=== PATIENT | male | born 1975 | race Caucasian/White ===

== ENCOUNTER 2017-12-24 11:10 | Emergency (ER) | payer MEDICAID, SELFPAY ==
[2017-12-24 11:15] VITALS: BP 120/79; PULSE 95; RESP 12; TEMP 36.8; O2SAT 93
--- NOTE | 2017-12-24 11:52 | ED.GENADUL ---
Disposition Clinical Impression: Laceration of hand Disposition: HOME Condition: Stable Instructions: Care For Your Stitches (ED), Laceration (ED) Additional Instructions: Return immediately for any signs of infection which includes purulent drainage, erythema, significant change in pain or discomfort, or any further concerns. Otherwise keep wound clean and dry and return to the emergency department in 7-10 days for suture removal. Referrals: [facility] Emergency [facility]. [Outside] (Return immediately for any signs of infection otherwise return in 7-10 days for suture removal.) Medical Decision Making - Medical Decision Making Patient presenting to the emergency department for right hand laceration. Patient is predominantly right-handed. Physical exam shows a 3 cm laceration between the thumb and index finger in the webspace. Visualization of wound down to the base in bloodless field shows no deep tissue damage, no obvious tendon or significant vascular injury, no foreign body and no significant contamination. See procedure note for wound closure. Patient was encouraged to watch for any signs of infection and return immediately if these occur otherwise to return in 7-10 days for suture removal. History of Present Illness - General Chief complaint: Laceration Stated complaint: RT HAND LACERATION Time Seen by Provider: 12/24/17 11:11 Source: patient, RN notes reviewed Mode of arrival: ambulatory Limitations: no limitations - History of Present Illness Initial comments: Patient reports approximately an hour prior to arrival he was attempting to install a windshield in a old pickup truck and placed the rubberized seal around the glass. When he was attempting to put on the seal his hand slipped causing a laceration to his right webspace in between the thumb and the index finger. Patient states full movement and sensation of the extremity with moderate amount of bleeding. Patient denies any other injury or trauma. Patient is predominantly right-handed. Onset/Timin -: hour(s) Severity scale (1-10): 3 Quality: aching Consistency: constant Improves with: none Worsens with: none Associated Symptoms: denies other symptoms Treatments Prior to Arrival: none - Related Data Flexaril 09/05/17 Gabapentin 100 mg PO DAILY PRN 09/05/17 SUMAtriptan [Imitrex] 50 mg PO DAILY 09/05/17 CarBAMazepine [TEGretol] 200 mg PO TID 12/24/17 Allergies Allergy/AdvReac Type Severity Reaction Status Date / Time No Known Allergies Allergy Unverified 12/24/17 11:21 Review of Systems Constitutional: no symptoms reported Cardiovascular: denies: syncope Skin: as per HPI Past Medical History - Past Medical History Medical history: seizures Chronic back pain/shoulder pain Surgical history: non-contributory Psychiatric history: other Family history: CAD/[place], diabetes - Social History Smoking status: current everyday smoker Alcohol use: none Drug use: none Living Situation: lives with family General Exam - General Limitations: no limitations General appearance: alert, in no apparent distress - Head Head exam: Present: atraumatic - Respiratory Respiratory exam: Absent: respiratory distress - Cardiovascular Cardiovascular Exam: Present: regular rate, normal rhythm - Expanded Upper Extremity Exam Right Elbow exam: Present: normal inspection Forearm Wrist exam: Present: normal inspection Hand Wrist exam: Present: full ROM, laceration (3 cm laceration in between thumb and index finger). Absent: tenderness, swelling Neuro motor exam: Present: wrist extension intact, thumb opposition intact, thumb IP flexion intact, thumb adduction intact, fingers 2-5 abduction intact Neurosensory exam: Present: 2-point discrimination, radial nerve intact, ulnar nerve intact, median nerve intact Vascular: Present: normal capillary refill, radial pulse (2+). Absent: vascular compromise - Neurological Exam Neurological exam: Present: alert, oriented X3. Absent: altered - Skin Skin exam: Present: warm, dry, normal color Course Vital Signs - 24 hr 12/24/17 11:15 Temperature 36.8 C Pulse 95 H Respiratory 12 Rate Blood Pressure 120/79 Pulse Oximetry 93 L Procedures - Laceration Repair Consent Obtained: Verbal consent Copious Irrigation performed: Yes Laceration Length (cm): 3 Laceration Depth: Subcutaneous Bleeding Type/Amount: Moderate, Bleeding Controlled Complexity: Simple Anesthetic: Local, Lidocaine 2% Material: Proline Suture Size: 4-0 Suture Number: 4
[2017-12-24 12:08] VITALS: BP 120/79; PULSE 95; RESP 12; TEMP 36.8; O2SAT 93
== END 2017-12-24 12:09 | disposition home or self-care (01) ==
PROVIDERS: Emergency Provider Emergency Medicine; PCP Family Medicine
DX: S61.411A Laceration without foreign body of right hand, initial encounter (principal); W25.XXXA Contact with sharp glass, initial encounter
CPT/HCPCS: 12002

== ENCOUNTER → 2017-12-28 13:50 | Outpatient (REF) | payer MEDICAID, SELFPAY ==
[2017-12-28 20:29] LABS: Bacteria Few HPF (Negative); C & S Indicated? Yes; Casts Negative LPF (Negative); Crystals Negative HPF (Negative); Epithelial Cells Rare HPF (Negative); Mucus Negative (Negative); Other Cells Rare Transitional (Negative); RBC 0-2 (0-2)
[2017-12-28 20:38] LABS: Abs Immature Grans 0.03 k/cumm (0.0-0.09); Absolute Basophil Count 0.03 k/cumm (0.0-0.2); Absolute Eosinophil Count 0.42 k/cumm (0.0-0.7); Absolute Lymphocyte Count 1.96 k/cumm (1.2-3.4); Absolute Monocyte Count 0.53 k/cumm (0.11-0.7); Absolute Neutrophil Count 7.07 k/cumm (1.2-6.7); Basophils % 0.3; Eosinophils % 4.2; HCT 46.1 % (40.0-50.0); HGB 15.4 g/dL (13.5-17.5); Immature Grans % 0.3; Lymphocytes % 19.5; Mean Corp. HGB Concentration 33.4 g/dL (32.0-36.0); Mean Corpuscular Hemoglobin 30.3 pg (27.0-33.0); Mean Corpuscular Volume 90.7 fL (80-95); Mean Platelet Volume 11.9 fL (8.0-11.0); Monocytes % 5.3; Neutrophils % 70.4; Platelet Count 220 x1000/uL (130-400); RBC 5.08 m/cumm (4.50-6.00); RBC Distribution Width 13.3 % (11.8-14.1); White Blood Cell Count 10.04 k/cumm (4.4-10.8)
== END ==
LOC: NCHCN 13:50
PROVIDERS: PCP Family Medicine; Visit Provider Physician Assistant Medical
DX: R30.0 Dysuria (principal); Z51.81 Encounter for therapeutic drug level monitoring
CPT/HCPCS: 87077; 81015; 85025; 87086; 87186

== ENCOUNTER 2017-12-31 16:14 | Emergency (ER) | payer MEDICAID, SELFPAY ==
[2017-12-31 16:34] VITALS: BP 101/69; PULSE 78; RESP 15; TEMP 36.9; O2SAT 94
--- NOTE | 2017-12-31 17:03 | ED.GENADUL ---
Disposition Clinical Impression: Wound dehiscence Disposition: HOME Condition: Good Additional Instructions: Please change Band-Aid every 1-2 days time. I anticipate your wound will heal over the next 7-10 days time. Avoid contaminated/dirty morales, or swimming in ponds and streams until healed. Return if you develop a fever, foul-smelling discharge from the wound or any other concerns Medical Decision Making - Medical Decision Making 42-year-old male with dehiscence of small wound at the right hand that he disrupted this morning when falling on it. Discussed with him we will let the area heal by secondary intention. Dressing placed at the bedside and patient stable for discharge to home. History of Present Illness - General Chief complaint: Laceration Stated complaint: R HAND/SUTURE REPAIR NEEDED? Time Seen by Provider: 12/31/17 16:52 Source: patient, RN notes reviewed Mode of arrival: ambulatory Limitations: no limitations - History of Present Illness Initial comments: Hand wound: 42-year-old male was seen on December 24 for laceration to the right hand. Sutures were placed and he removed them at home this morning. He separately fell on outstretched hand and disrupted the wound edge. No bleeding. No numbness or tingling. He did not hurt his thumb or hand - Related Data Flexaril 09/05/17 Gabapentin 100 mg PO DAILY PRN 09/05/17 SUMAtriptan [Imitrex] 50 mg PO DAILY 09/05/17 CarBAMazepine [TEGretol] 200 mg PO TID 12/24/17 Allergies Allergy/AdvReac Type Severity Reaction Status Date / Time No Known Allergies Allergy Unverified 12/31/17 16:39 Review of Systems Other: 4 systems reviewed, otherwise negative Past Medical History - Past Medical History Medical history: seizures Chronic back pain/shoulder pain Surgical history: non-contributory Family history: CAD/[place], diabetes - Social History Alcohol use: none Drug use: none General Exam - General Limitations: no limitations General appearance: alert, in no apparent distress - Head Head exam: Present: atraumatic, normocephalic - Eye Eye exam: Present: PERRL, EOMI - Extremities Exam Extremities exam: Present: full ROM, normal capillary refill, other (Right hand webbing between index finger and thumb shows 1 cm dehiscence of wound edge. No bleeding, no discharge. No foreign body seen.) - Psychiatric Psychiatric exam: Present: normal affect, normal mood - Skin Skin exam: Present: warm, dry, intact Course Vital Signs - 24 hr 12/31/17 16:34 Temperature 36.9 C Pulse 78 Respiratory 15 Rate Blood Pressure 101/69 Pulse Oximetry 94 L
== END 2017-12-31 17:08 | disposition home or self-care (01) ==
PROVIDERS: Emergency Provider Emergency Medicine; PCP Family Medicine
DX: T81.30XA Disruption of wound, unspecified, initial encounter (principal); W01.0XXA Fall on same level from slipping, tripping and stumbling without subsequent striking against object, initial encounter
CPT/HCPCS: 99282

== ENCOUNTER 2018-01-15 11:09 | Emergency (ER) | payer MEDICAID, SELFPAY ==
[2018-01-15 11:36] VITALS: BP 123/90; PULSE 79; RESP 16; TEMP 37; O2SAT 95
--- NOTE | 2018-01-15 12:02 | W.ED.GENAD ---
Discharge Plan Disposition Patient Disposition: HOME Condition: Good Discharge Details Chief Complaint: Laceration Clinical Impression: Finger laceration Primary Care Provider: Suzy Anderson V ED Provider: Ramona Dangelo Home Meds and New Rx's Prescriptions: Continue sumatriptan succinate [Imitrex] 50 MG tablet 50 mg PO DAILY RF: 0 gabapentin 100 MG capsule 100 mg PO DAILY PRNRF: 0 flexaril RF: 0 carbamazepine [Tegretol] 200 MG tablet 200 mg PO TID RF: 0 Discharge Instructions Instructions: Finger Laceration (ED) Additional Instructions: Keep wound clean, dry, covered. Keep current dressing for the next 24 hours. After that time, he may cover with a Band-Aid. Please wear gloves when you are at work. He may wash and running water but do not soak or submerge this will increase her risk of infection. Please monitor for signs of infection including redness, warmth, drainage, fever/chills, increased pain. If these arise or he develop other new/worsening symptoms please seek care urgently once again. Please return in 1 week for suture removal Referrals: Suzy Anderson MD [Primary Care Provider] - Discharge Data Discharge Date/Time-TO BE ENTERED AT DEPARTURE: 01/15/18 12:12 Medical Decision Making MDM Narrative Medical decision making narrative: Patient presents today with chief complaint of laceration to the left index finger. Patient has a 1 cm linear laceration over the radial side of the DIP joint of the left index finger. Sensation is intact. Patient's last tetanus was in 2017. Wound is not actively bleeding. Wound edges lie approximated. His wound edges do not move when the patient flexes digit I advised on adhesives for less invasive method. However, the patient declines this. He reports that he has had wound glued in the past without success. Patient is requesting suture closure. Patient has discussed risk/benefits as well as expected procedural steps. He voiced understanding and wished to proceed. 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 A digital block was then performed 1% lidocaine plain. 5 cc was infiltrated. This sufficiently anesthetized the digit. Wound was then copiously irrigated with sterile saline and cleansed with chlorhexidine. The wound was explored to base in bloodless field. Finger tourniquet was used to help with this. No foreign body or debris was noted. Note is into the subcutaneous tissue, does not extend past this to involve tendon or bone. Attention was then turned to closure. #3 simple interrupted sutures were placed with 5-0 nylon. Patient tolerated procedure well and a dry sterile bandage was put into place Patient I discussed wound care in depth. We discussed the signs symptoms of infection when to seek care urgently once again. Advised to return in 7 days for suture removal. Advised he may use Tylenol and/or ibuprofen as needed for discomfort. Advised to keep this covered while at work with gloves. He will keep covered with a Band-Aid the remainder of the time. Advised that he may wash and running water but should not soak or submerge this will increase his risk of infection. All his questions and concerns were addressed and he is in agreement with this plan. HPI - General Adult General Mode of arrival: ambulatory. Date/Time Provider Initiated Documentation: 01/15/18 11:16. Limitations to Documentation: no limitations. Information obtained by: patient. HPI Narrative: Patient is a 42-year-old [id number] male presenting today with chief complaint of laceration to the index finger of the left hand along the radial aspect over the DIP joint. He reports a prior to arrival he was cutting zip ties with an X-[employer] knife when he cut his finger. He denies any altered sensation. Reports I have chronic numbness in my fingers because of all of my trauma. Denies any acute change in this. Denies other injury to of the incident. Believes that he cut down to the bone Related Data Home Medications Medication Instructions Recorded Confirmed Flexaril 09/05/17 gabapentin 100 mg PO DAILY PRN 09/05/17 01/15/18 sumatriptan succinate [Imitrex] 50 mg PO DAILY 09/05/17 01/15/18 carbamazepine [Tegretol] 200 mg PO TID 12/24/17 01/15/18 Allergies Allergy/AdvReac Type Severity Reaction Status Date / Time No Known Allergies Allergy Unverified 01/15/18 11:38 General Stated Complaint: Laceration LILLY: 4 Review of Systems Constitutional Denies chills and Denies fever(s) Respiratory Denies cough Musculoskeletal Reports as per HPI (Denies any difficulty moving the finger) Integumentary/Breasts Reports as per HPI Neurologic Reports as per [facility] Social History Smoking/Tobacco Use Status: Current every day Exam Const General: cooperative, healthy appearing, comfortable and no acute distress Nutritional Appearance: average body habitus Orientation: alert Resp Effort & Inspection: normal respiratory effort, able to speak in complete sentences and no respiratory distress Skin Trauma: laceration (Patient has a 1 cm laceration to the subcutaneous tissue on the radial aspect near the DIP joint of the left index finger. Wound edges do not separate with flexion of the DIP. He is full range of motion. Sensation is intact. Ligament is intact) Neuro General: alert and awake Cognition: normal cognition Speech: speech normal Gait: normal gait Sensory Exam: no sensory deficits noted Extrem General: abnormal to inspection (Laceration as above), full ROM and normal capillary refill Psych Appearance: grossly normal Mental Status: mental status grossly normal Speech and Movement: speech and movement normal Course Vital Signs Temperature 37 C 01/15/18 11:36 Pulse 79 01/15/18 11:36 Respiratory Rate 16 01/15/18 11:36 Blood Pressure 123/90 01/15/18 11:36 Pulse Oximetry 95 01/15/18 11:36 Temperature 37 C 01/15/18 11:36 Pulse 79 01/15/18 11:36 Respiratory Rate 16 01/15/18 11:36 Blood Pressure 123/90 01/15/18 11:36 Pulse Oximetry 95 01/15/18 11:36
--- NOTE | 2018-01-15 12:08 | ED.GENADUL_ITS ---
Discharge Plan Disposition Patient Disposition: HOME Condition: Good Discharge Details Chief Complaint: Laceration Clinical Impression: Finger laceration Primary Care Provider: Suzy Anderson V ED Provider: Ramona Dangelo Home Meds and New Rx's Prescriptions: Continue sumatriptan succinate [Imitrex] 50 MG tablet 50 mg PO DAILY RF: 0 gabapentin 100 MG capsule 100 mg PO DAILY PRNRF: 0 flexaril RF: 0 carbamazepine [Tegretol] 200 MG tablet 200 mg PO TID RF: 0 Discharge Instructions Instructions: Finger Laceration (ED) Additional Instructions: Keep wound clean, dry, covered. Keep current dressing for the next 24 hours. After that time, he may cover with a Band-Aid. Please wear gloves when you are at work. He may wash and running water but do not soak or submerge this will increase her risk of infection. Please monitor for signs of infection including redness, warmth, drainage, fever/chills, increased pain. If these arise or he develop other new/worsening symptoms please seek care urgently once again. Please return in 1 week for suture removal Referrals: Suzy Anderson MD [Primary Care Provider] - Discharge Data Discharge Date/Time-TO BE ENTERED AT DEPARTURE: 01/15/18 12:12 Medical Decision Making MDM Narrative Medical decision making narrative: Patient presents today with chief complaint of laceration to the left index finger. Patient has a 1 cm linear laceration over the radial side of the DIP joint of the left index finger. Sensation is intact. Patient's last tetanus was in 2017. Wound is not actively bleeding. Wound edges lie approximated. His wound edges do not move when the patient flexes digit I advised on adhesives for less invasive method. However, the patient declines this. He reports that he has had wound glued in the past without success. Patient is requesting suture closure. Patient has discussed risk/benefits as well as expected procedural steps. He voiced understanding and wished to proceed. 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 A digital block was then performed 1% lidocaine plain. 5 cc was infiltrated. This sufficiently anesthetized the digit. Wound was then copiously irrigated with sterile saline and cleansed with chlorhexidine. The wound was explored to base in bloodless field. Finger tourniquet was used to help with this. No foreign body or debris was noted. Note is into the subcutaneous tissue, does not extend past this to involve tendon or bone. Attention was then turned to closure. #3 simple interrupted sutures were placed with 5-0 nylon. Patient tolerated procedure well and a dry sterile bandage was put into place Patient I discussed wound care in depth. We discussed the signs symptoms of infection when to seek care urgently once again. Advised to return in 7 days for suture removal. Advised he may use Tylenol and/or ibuprofen as needed for discomfort. Advised to keep this covered while at work with gloves. He will keep covered with a Band-Aid the remainder of the time. Advised that he may wash and running water but should not soak or submerge this will increase his risk of infection. All his questions and concerns were addressed and he is in agreement with this plan. HPI - General Adult General Mode of arrival: ambulatory . Date/Time Provider Initiated Documentation: 01/15/18 11:16 . Limitations to Documentation: no limitations . Information obtained by: patient . HPI Narrative: Patient is a 42-year-old [id number] male presenting today with chief complaint of laceration to the index finger of the left hand along the radial aspect over the DIP joint. He reports a prior to arrival he was cutting zip ties with an X-[employer] knife when he cut his finger. He denies any altered sensation. Reports I have chronic numbness in my fingers because of all of my trauma. Denies any acute change in this. Denies other injury to of the incident. Believes that he cut down to the bone Related Data Home Medications Medication Instructions Recorded Confirmed Flexaril 09/05/17 gabapentin 100 mg PO DAILY PRN 09/05/17 01/15/18 sumatriptan succinate [Imitrex] 50 mg PO DAILY 09/05/17 01/15/18 carbamazepine [Tegretol] 200 mg PO TID 12/24/17 01/15/18 Allergies Allergy/AdvReac Type Severity Reaction Status Date / Time No Known Allergies Allergy Unverified 01/15/18 11:38 General Stated Complaint: Laceration LILLY: 4 Review of Systems Constitutional Denies chills and Denies fever(s) Respiratory Denies cough Musculoskeletal Reports as per HPI (Denies any difficulty moving the finger) Integumentary/Breasts Reports as per HPI Neurologic Reports as per [facility] Social History Smoking/Tobacco Use Status: Current every day Exam Const General: cooperative, healthy appearing, comfortable and no acute distress Nutritional Appearance: average body habitus Orientation: alert Resp Effort & Inspection: normal respiratory effort, able to speak in complete sentences and no respiratory distress Skin Trauma: laceration (Patient has a 1 cm laceration to the subcutaneous tissue on the radial aspect near the DIP joint of the left index finger. Wound edges do not separate with flexion of the DIP. He is full range of motion. Sensation is intact. Ligament is intact) Neuro General: alert and awake Cognition: normal cognition Speech: speech normal Gait: normal gait Sensory Exam: no sensory deficits noted Extrem General: abnormal to inspection (Laceration as above), full ROM and normal capillary refill Psych Appearance: grossly normal Mental Status: mental status grossly normal Speech and Movement: speech and movement normal Course Vital Signs Temperature 37 C 01/15/18 11:36 Pulse 79 01/15/18 11:36 Respiratory Rate 16 01/15/18 11:36 Blood Pressure 123/90 01/15/18 11:36 Pulse Oximetry 95 01/15/18 11:36 Temperature 37 C 01/15/18 11:36 Pulse 79 01/15/18 11:36 Respiratory Rate 16 01/15/18 11:36 Blood Pressure 123/90 01/15/18 11:36 Pulse Oximetry 95 01/15/18 11:36
== END 2018-01-15 12:12 | disposition home or self-care (01) ==
PROVIDERS: Emergency Provider Physician Assistant; PCP Family Medicine
DX: S61.211A Laceration without foreign body of left index finger without damage to nail, initial encounter (principal); W26.0XXA Contact with knife, initial encounter
CPT/HCPCS: 12001

== ENCOUNTER 2018-06-20 03:42 | Emergency (ER) | payer MEDICAID, SELFPAY ==
[2018-06-20 03:44] VITALS: BP 134/80; PULSE 93; RESP 16; TEMP 36.5; O2SAT 94
[2018-06-20] MEDS: Fluorescein STRIPS 100/BOX 1 MG (04:02)
[2018-06-20] MEDS: Tetracaine 0.5% 4 ML BTL (04:02)
--- NOTE | 2018-06-20 04:03 | W.ED.GENAD ---
Discharge Plan Disposition Patient Disposition: HOME Condition: Good Discharge Details Chief Complaint: EyeProblem Clinical Impression: Intraocular foreign body Primary Care Provider: Suzy Anderson V ED Provider: Brian Zafar Home Meds and New Rx's Prescriptions: No Action sumatriptan succinate [Imitrex] 50 MG tablet 50 mg PO DAILY RF: 0 gabapentin 100 MG capsule 100 mg PO DAILY PRNRF: 0 carbamazepine [Tegretol] 200 MG tablet 200 mg PO TID RF: 0 Discharge Instructions Instructions: Eye Foreign Body (ED) Additional Instructions: Please use the erythromycin ointment and URI 3 times per day. Please follow-up immediately tomorrow morning with . If you notice any sudden changes in vision, worsening pain, please return immediately for reevaluation. If you notice any worsening of your symptoms, or any new symptoms such as vomiting, diarrhea, fever, chills, shortness of breath, chest pain, numbness, weakness, or fainting , please return immediately to the emergency department for reevaluation. Please follow up with your primary care provider as soon as possible for reassessment and reevaluation. As always, it was a pleasure participating in your medical care today. Referrals: [facility] [OTHER] - Medical Decision Making This is a pleasant 43-year-old male who repetitively gets foreign bodies in his eye, who presents today for foreign body in his eye. Tetanus is up-to-date. Physical exam demonstrates evidence of a small black foreign body near the pupil of the patient's right eye. No rust ring, no other signs of floor seen uptake. Negative Artur sign. Vision intact. Using a TB needle the majority of the black spot was able to be removed without complication or difficulty, however there is still a small component that is still retained. I was unable to get this out, and did not feel that it was appropriate to use the fiber as this may potentially be a metallic foreign body. With the majority being removed, I do feel it reasonable that the patient can closely follow up with the central aisle cashier promptly tomorrow morning in the next 4 hours for definitive management. He has Dr. Will's number already, however we will put him on the list to be called for this problem follow-up. He will be given topical erythromycin here tonight. He will be given the tube to go home with. We discussed red flags for which to return. I have extensively reviewed the treatment plan and discharge instructions with the patient. I have addressed all patient concerns at this time. The patient was made aware of what symptoms to monitor for that would warrant a return to the emergency department. Discussed the plan with the patient, they demonstrate verbal understanding and agreement with our assessment and plan at this time. HPI General Date/Time Provider Initiated Documentation: 06/20/18 03:45. HPI Narrative: This is a pleasant 43-year-old male with a past medical history of foreign body in his right eye who presents today for evaluation of pain in his right eye. He just had a foreign body in his right eye which was removed by the central aisle cashier Dr. Will earlier today. He went back to work tonight and again got something in his right eye. Feels like there is something stuck in his eye per the patient, he has an irritating-like sensation. He denies any significant changes in his vision. He denies contact lens use. He denies any trauma to his eye, headache, or other complaints or modifying factors. Related Data Home Medications Medication Instructions Recorded Confirmed gabapentin 100 mg PO DAILY PRN 09/05/17 06/20/18 sumatriptan succinate [Imitrex] 50 mg PO DAILY 09/05/17 06/20/18 carbamazepine [Tegretol] 200 mg PO TID 12/24/17 06/20/18 Allergies Allergy/AdvReac Type Severity Reaction Status Date / Time No Known Allergies Allergy Unverified 01/15/18 11:38 General Stated Complaint: EyeProblem LILLY: 4 Review of Systems Review of Systems All systems reviewed & are unremarkable except as noted in HPI and below PFSH Social History Smoking and Tabacco status: Current every day Exam Narrative Exam Narrative: 1.Const: Well-nourished, Well-developed, appearing stated age 2.Eyes: PERRL, no conjunctival injection, and symmetrical lids. Evaluation of the right eye demonstrates no evidence of foreign body beneath the upper or lower lid. No significant floor seen uptake except for the center of the eye. There is a small black speck noted in the 3 o'clock position just off center from the pupil for the medial component of the eye. Negative Artur sign. No evidence of associated rust ring. 3.ENT: Atraumatic external nose and ears. Moist MM. Neck: Symmetric, trachea midline, No thyromegaly. 4.CVS: +S1/S2, No murmurs or gallops. Peripheral pulses 2+ and equal in all extremities. Brisk capillary refill in all extremities. 5.RESP: Unlabored respiratory effort. Clear to auscultation bilaterally. No wheezes rales or rhonchi 6.GI: Soft, Nontender/Nondistended, No hepatosplenomegaly. No guarding or rebound. 7.MSK: Normocephalic/Atraumatic, Extremities w/o deformity or ttp No cyanosis or clubbing, Normal movement of all extremities 8.Skin: Warm, Dry. No rashes or lesions. 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 Sensation grossly intact, no focal neurologic deficits. 10.Psych: (AAO) x3. Appropriate mood and affect Course Vital Signs Temperature 36.5 C 06/20/18 03:44 Pulse 93 H 06/20/18 03:44 Respiratory Rate 16 06/20/18 03:44 Blood Pressure 134/80 06/20/18 03:44 Pulse Oximetry 94 L 06/20/18 03:44 Temperature 36.5 C 06/20/18 03:44 Temperature Source Temporal Artery Scan 06/20/18 03:44 Pulse 93 H 06/20/18 03:44 Respiratory Rate 16 06/20/18 03:44 Blood Pressure 134/80 06/20/18 03:44 Blood Pressure Position Sitting 06/20/18 03:44 Pulse Oximetry 94 L 06/20/18 03:44 Oxygen Delivery Method Room Air 06/20/18 03:44 Oxygen Flow Rate 0 06/20/18 03:44
[2018-06-20] MEDS: Erythromycin Ophth Oint 3.5 GM TUBE OD (04:05)
--- NOTE | 2018-06-20 04:07 | ED.GENADUL_ITS ---
Discharge Plan Disposition Patient Disposition: HOME Condition: Good Discharge Details Chief Complaint: EyeProblem Clinical Impression: Intraocular foreign body Primary Care Provider: Suzy Anderson V ED Provider: Brian Zafar Home Meds and New Rx's Prescriptions: No Action sumatriptan succinate [Imitrex] 50 MG tablet 50 mg PO DAILY RF: 0 gabapentin 100 MG capsule 100 mg PO DAILY PRNRF: 0 carbamazepine [Tegretol] 200 MG tablet 200 mg PO TID RF: 0 Discharge Instructions Instructions: Eye Foreign Body (ED) Additional Instructions: Please use the erythromycin ointment and URI 3 times per day. Please follow-up immediately tomorrow morning with . If you notice any sudden changes in vision, worsening pain, please return immediately for reevaluation. If you notice any worsening of your symptoms, or any new symptoms such as vomiting, diarrhea, fever, chills, shortness of breath, chest pain, numbness, weakness, or fainting , please return immediately to the emergency department for reevaluation. Please follow up with your primary care provider as soon as possible for reassessment and reevaluation. As always, it was a pleasure participating in your medical care today. Referrals: [facility] [OTHER] - Medical Decision Making This is a pleasant 43-year-old male who repetitively gets foreign bodies in his eye, who presents today for foreign body in his eye. Tetanus is up-to-date. Physical exam demonstrates evidence of a small black foreign body near the pupil of the patient's right eye. No rust ring, no other signs of floor seen uptake. Negative Artur sign. Vision intact. Using a TB needle the majority of the black spot was able to be removed without complication or difficulty, however there is still a small component that is still retained. I was unable to get this out, and did not feel that it was appropriate to use the fiber as this may potentially be a metallic foreign body. With the majority being removed, I do feel it reasonable that the patient can closely follow up with the religious leader promptly tomorrow morning in the next 4 hours for definitive management. He has Dr. Will's number already, however we will put him on the list to be called for this problem follow-up. He will be given topical erythromycin here tonight. He will be given the tube to go home with. We discussed red flags for which to return. I have extensively reviewed the treatment plan and discharge instructions with the patient. I have addressed all patient concerns at this time. The patient was made aware of what symptoms to monitor for that would warrant a return to the emergency department. Discussed the plan with the patient, they demonstrate verbal understanding and agreement with our assessment and plan at this time. HPI General Date/Time Provider Initiated Documentation: 06/20/18 03:45 . HPI Narrative: This is a pleasant 43-year-old male with a past medical history of foreign body in his right eye who presents today for evaluation of pain in his right eye. He just had a foreign body in his right eye which was removed by the religious leader Dr. Will earlier today. He went back to work tonight and again got something in his right eye. Feels like there is something stuck in his eye per the patient, he has an irritating-like sensation. He denies any significant changes in his vision. He denies contact lens use. He denies any trauma to his eye, headache, or other complaints or modifying factors. Related Data Home Medications Medication Instructions Recorded Confirmed gabapentin 100 mg PO DAILY PRN 09/05/17 06/20/18 sumatriptan succinate [Imitrex] 50 mg PO DAILY 09/05/17 06/20/18 carbamazepine [Tegretol] 200 mg PO TID 12/24/17 06/20/18 Allergies Allergy/AdvReac Type Severity Reaction Status Date / Time No Known Allergies Allergy Unverified 01/15/18 11:38 General Stated Complaint: EyeProblem LILLY: 4 Review of Systems Review of Systems All systems reviewed & are unremarkable except as noted in HPI and below PFSH Social History Smoking and Tabacco status: Current every day Exam Narrative Exam Narrative: 1.Const: Well-nourished, Well-developed, appearing stated age 2.Eyes: PERRL, no conjunctival injection, and symmetrical lids. Evaluation of the right eye demonstrates no evidence of foreign body beneath the upper or lower lid. No significant floor seen uptake except for the center of the eye. There is a small black speck noted in the 3 o'clock position just off center from the pupil for the medial component of the eye. Negative Artur sign. No evidence of associated rust ring. 3.ENT: Atraumatic external nose and ears. Moist MM. Neck: Symmetric, trachea midline, No thyromegaly. 4.CVS: +S1/S2, No murmurs or gallops. Peripheral pulses 2+ and equal in all extremities. Brisk capillary refill in all extremities. 5.RESP: Unlabored respiratory effort. Clear to auscultation bilaterally. No w heezes rales or rhonchi 6.GI: Soft, Nontender/Nondistended, No hepatosplenomegaly. No guarding or rebound. 7.MSK: Normocephalic/Atraumatic, Extremities w/o deformity or ttp No cyanosis or clubbing, Normal movement of all extremities 8.Skin: Warm, Dry. No rashes or lesions. 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 Sensation grossly intact, no focal neurologic deficits. 10.Psych: (AAO) x3. Appropriate mood and affect Course Vital Signs Temperature 36.5 C 06/20/18 03:44 Pulse 93 H 06/20/18 03:44 Respiratory Rate 16 06/20/18 03:44 Blood Pressure 134/80 06/20/18 03:44 Pulse Oximetry 94 L 06/20/18 03:44 Temperature 36.5 C 06/20/18 03:44 Temperature Source Temporal Artery Scan 06/20/18 03:44 Pulse 93 H 06/20/18 03:44 Respiratory Rate 16 06/20/18 03:44 Blood Pressure 134/80 06/20/18 03:44 Blood Pressure Position Sitting 06/20/18 03:44 Pulse Oximetry 94 L 06/20/18 03:44 Oxygen Delivery Method Room Air 06/20/18 03:44 Oxygen Flow Rate 0 06/20/18 03:44
--- NOTE | 2018-06-20 08:33 | PDOC.ERCMPRO ---
Care Management Progress Note 06/20-Dr. Zafar requested assistance with a [facility] f/u on Tuesday, 06/20, for foreign body in eye. Referral, demographics, and provider note faxed to [facility] this am.
== END 2018-06-20 04:10 | disposition home or self-care (01) ==
PROVIDERS: Emergency Provider Student in an Organized Health Care Education/Training Program; PCP Family Medicine
DX: T15.01XA Foreign body in cornea, right eye, initial encounter (principal); H57.11 Ocular pain, right eye
CPT/HCPCS: 65220

== ENCOUNTER 2018-12-28 17:34 | Emergency (ER) | payer MEDICAID, SELFPAY ==
[2018-12-28 18:07] VITALS: BP 114/69; PULSE 74; RESP 14; TEMP 36.9
--- NOTE | 2018-12-28 18:11 | ED.GENADUL_ITS ---
Discharge Plan Disposition Patient Disposition: HOME Condition: Stable Discharge Details Chief Complaint: Urinary Clinical Impression: UTI (urinary tract infection) Primary Care Provider: Suzy Anderson V ED Provider: Minerva Tineo Home Meds and New Rx's Prescriptions: New ciprofloxacin HCl 500 mg tablet 500 mg PO BID 7 Days Qty: 14 RF: 0 Continued sumatriptan succinate [Imitrex] 50 MG tablet 50 mg PO DAILY RF: 0 gabapentin 100 MG capsule 100 mg PO DAILY PRNRF: 0 carbamazepine [Tegretol] 200 MG tablet 200 mg PO TID RF: 0 Discharge Instructions Instructions: Urinary Tract Infection in Men (ED) Additional Instructions: Take the antibiotics until finished. Follow-up with your primary care doctor next week for reevaluation. You will be notified if your chlamydia or gonorrhea tests are positive. You can also call the ER at [phone] for your results. Return immediately to the emergency department if you develop any worsening or new concerning symptoms of fever, increased pain. Discharge Data Discharge Date/Time-TO BE ENTERED AT DEPARTURE: 12/28/18 19:45 Discharge Physician: Minerva Tineo Medical Decision Making 43-year-old male who presents with urinary frequency, intermittent retention, dysuria at the end of urination that started today. States symptoms feel similar to when he has had a UTI in the past. Denies penile discharge, fever. States he has been with the same partner for some time now and denies any known exposure to STD. He appears nontoxic. Normal exam. Abdomen soft and nontender. No CVA tende rness. Urinalysis notes greater than 50 WBCs and RBCs, small leukocyte esterase, negative nitrite and epithelial cells. Discussed with patient that his urinalysis appears consistent with UTI, but this could possibly due to urethritis. Exam does not appear consistent with epididymitis or prostatitis. Patient declined treatment for STD prophylaxis. Nurse sent clean-catch urine and dirty sample for gonorrhea and chlamydia. Patient given 1 dose of Cipro here as well as prescription. He was advised to follow-up with his primary care doctor for reevaluation and to return here at any time if worse. Medical Records Medical records reviewed: Yes I reviewed the patient's medical records. Lab Data Lab results reviewed: Yes I reviewed the patient's lab results. Laboratory Tests Range/Units 12/28/18 12/28/18 17:52 17:52 Urine Color (Yellow) Yellow Urine Clarity (Clear) Clear Urine pH (5-8) 7.0 Ur Specific Pierz (1.005-1.025) 1.010 Urine Protein (Negative) mg/dL Negative Urine Ketones (Negative) mg/dL Negative Urine Blood (Negative) Moderate H Urine Nitrite (Negative) Negative Urine Bilirubin (Negative) Negative Urine Urobilinogen (Up TO 0.2) EU/dL 0.2 Ur Leukocyte Esterase (Negative) Small H Urine RBC (0-2) >50 H Urine WBC (0-5) HPF >50 Ur Epithelial Cells (Negative) HPF Negative Urine Crystals (Negative) HPF Negative Urine Bacteria (Negative) HPF Rare Urine Mucus (Negative) Negative Urine Other (Negative) Mod transitional Ur Culture Indicated? Yes Urine Glucose (Negative) mg/dL Negative Chlamydia DNA Source Urine Ur Chlamydia DNA Probe Negative HPI General Mode of arrival: ambulatory . Date/Time Provider Initiated Documentation: 12/28/18 18:10 . Limitations to Documentation: no limitations . Information obtained by: patient . HPI Narrative: Patient is a 43-year-old male who presents with urinary frequency, intermittent retention, dysuria at the end of urination that started today. He states symptoms feel similar to when he has had a UTI in the past. He denies penile discharge or fever. States he has been with the same partner for some time now and denies any known exposure to STD. He states he last developed a UTI a few months ago when his partner had a UTI. Related Data Home Medications Medication Instructions Recorded Confirmed gabapentin 100 mg PO DAILY PRN 09/05/17 12/28/18 sumatriptan succinate [Imitrex] 50 mg PO DAILY 09/05/17 12/28/18 carbamazepine [Tegretol] 200 mg PO TID 12/24/17 12/28/18 ciprofloxacin HCl 500 mg PO BID 7 Days #14 tab 12/28/18 Previous Rx's Medication Instructions Recorded ciprofloxacin HCl 500 mg PO BID 7 Days #14 tab 12/28/18 Allergies Allergy/AdvReac Type Severity Reaction Status Date / Time No Known Allergies Allergy Unverified 01/15/18 11:38 General LILLY: 4 Review of Systems Review of Systems All systems reviewed & are unremarkable except as noted in HPI and below Constitutional Reports as per HPI, Denies chills and Denies fever(s) Eyes Denies blurry vision ENT Denies dizziness, Denies sore throat and Denies throat swelling Cardiovascular Denies chest pain and Denies dyspnea Respiratory Denies cough and Denies dyspnea Gastrointestinal Denies abdominal pain, Denies diarrhea and Denies vomiting Genitourinary Denies hematuria, Reports dysuria, Reports flank pain, Reports urinary frequency and Reports other (Urinary retention at times) Musculoskeletal Denies back pain and Denies numbness Integumentary/Breasts Denies lesions and Denies rash Neurologic Denies dizziness, Denies focal weakness and Denies numbness Allergic/Immunologic Denies throat swelling [facility] Medical History Chronic back pain (Acute) Chronic shoulder pain (Acute) Explosive personality disorder (Acute) Seizure disorder (Chronic) Surgical History History of surgical removal of pilonidal cyst (Acute) Social History Smoking/Tobacco Use Status: Current every day Drug use: Never Do you feel safe at home: Yes Do you feel safe in your relationship?: Yes Exam Const General: cooperative, healthy appearing and no acute distress HENMT Head: normal to inspection Face and sinus: normal facial exam Eyes General: appearance normal, both eyes and all related structures EOM: EOM intact bilaterally Neck Neck: normal visual inspection and No submandibular swelling Lymphatic: no lymphadenopathy noted Chest Chest: normal inspection of the chest and no tenderness Resp Effort & Inspection: normal respiratory effort and able to speak in complete sentences Auscultation: clear to auscultation bilaterally Cardio Rate: regular rate Rhythm: regular rhythm GI Inspection: normal to inspection Palpation: soft, not firm, not rigid and nontender Auscultation: normal bowel sounds Male General Exam: Yes normal external exam Penis: normal penis Scrotum: scrotum normal Testes: normal, no testicular mass, no testicular swelling and no testicular tenderness Skin General skin exam: no rashes or lesions noted Neuro General: alert, awake and oriented x3 Cognition: normal cognition Speech: speech normal Motor: muscle tone normal throughout Sensory Exam: no sensory deficits noted Extrem General: normal to inspection, full ROM, normal capillary refill, no calf tenderness bilaterally and no edema Psych Appearance: grossly normal Mental Status: mental status grossly normal Speech and Movement: speech and movement normal Affect: normal affect
[2018-12-28 18:17] LABS: Bilirubin Negative (Negative); Blood Moderate (Negative); Clarity Clear (Clear); Glucose Negative (Negative); Ketones Negative (Negative); Leukocyte Esterase Small (Negative); Nitrite Negative (Negative); Urobilinogen 0.2 EU/dL (Up TO 0.2)
[2018-12-28 18:31] LABS: Epithelial Cells Negative HPF (Negative); RBC >50 (0-2); WBC >50 HPF (0-5)
[2018-12-28 18:32] LABS: Bacteria Rare HPF (Negative); C & S Indicated? Yes; Crystals Negative HPF (Negative); Mucus Negative (Negative); Other Cells Mod Transitional (Negative)
[2018-12-28] MEDS: Ciprofloxacin 500 MG TAB PO (19:43)
[2019-01-01 14:16] LABS: Chlamydia Result Negative; Specimen Description URINE
== END 2018-12-28 19:45 | disposition home or self-care (01) ==
PROVIDERS: Emergency Provider Physician Assistant; PCP Family Medicine
DX: N39.0 Urinary tract infection, site not specified (principal); Z87.440 Personal history of urinary (tract) infections
CPT/HCPCS: 87491; 99283; 81003; 81015; 87086

== ENCOUNTER 2019-02-19 16:49 | Emergency (ER) | payer MEDICAID, SELFPAY ==
[2019-02-19 16:51] VITALS: BP 133/75; PULSE 97; RESP 18; TEMP 36.8; O2SAT 94
--- NOTE | 2019-02-19 16:57 | ED.GENADUL_ITS ---
Discharge Plan Disposition Patient Disposition: HOME Condition: Good Discharge Details Chief Complaint: DentalOral Clinical Impression: Dental infection Primary Care Provider: Suzy Anderson V ED Provider: Ramona Dangelo Home Meds and New Rx's Prescriptions: New amoxicillin-pot clavulanate [Augmentin] 875-125 mg tablet 1 tab PO BID Qty: 14 RF: 0 Continued sumatriptan succinate [Imitrex] 50 MG tablet 50 mg PO DAILY RF: 0 gabapentin 100 MG capsule 100 mg PO DAILY PRNRF: 0 carbamazepine [Tegretol] 200 MG tablet 200 mg PO TID RF: 0 acetaminophen 500 mg Tablet 1,000 mg PO PRN PRNRF: 0 Discharge Instructions Instructions: Dental Abscess (ED) Additional Instructions: Encourage hydration. Tylenol and ibuprofen as needed for discomfort. Please take the Augmentin as prescribed to help with your infection. Please follow-up with your dentist as soon as possible. If you develop fever/chills, increased pain, swelling or other new/worsening symptoms please seek care urgently once again. Referrals: Suzy Anderson MD [Primary Care Provider] - Discharge Data Discharge Date/Time-TO BE ENTERED AT DEPARTURE: 02/19/19 17:18 Medical Decision Making Patient is a 43-year-old male presented today with chief complaint of right lower dental pain that began last night. He denies any fevers or chills. States he has had issues of infection to this tooth historically. He has a fracture #230 tooth and has not had time to have this removed by the dentist. He did call dentist today and is able to make a follow-up appointment. He denies any fever/chills. No recent antibiotic use. No new trauma. No difficulty swallowing. No change in his voice. On exam, patient appears nontoxic. He does have some mild swelling and erythema to the proximal side of the #30 tooth that is notably fractured. However, no area of fluctuance to suggest a drainable abscess. I do not see any sublingual swelling. No palpable lymphadenopathy. Patient will be treated with Augmentin. He will stay in contact with his dentist regarding follow-up and likely dental extraction. He was given strict return precautions. All his questions and concerns were addressed and he is in agreement with this plan. HPI General Mode of arrival: ambulatory . Date/Time Provider Initiated Documentation: 02/19/19 16:57 . Limitations to Documentation: no limitations . Information obtained by: patient and RN notes reviewed . History of Present Illness 43 year old M presents to the emergency department with the chief complaint of right lower dental pain, described as moderate and similar to prior episodes, with intensity rated at 4. Quality is described as aching, and is localized to the mouth. Patient reports no radiation. Patient started experiencing this day(s) (1) and it has been constant. Medication improves symptom(s), (tylenol) No exacerbating factors reported . Patient notes no other symptoms.; denies diaphoresis, fever/chills, nausea/vomiting and rash. Patient did receive the following treatments prior to arrival, other (tylenol) Related Data Home Medications Medication Instructions Recorded Confirmed gabapentin 100 mg PO DAILY PRN 09/05/17 02/19/19 sumatriptan succinate [Imitrex] 50 mg PO DAILY 09/05/17 02/19/19 carbamazepine [Tegretol] 200 mg PO TID 12/24/17 02/19/19 acetaminophen 1,000 mg PO PRN PRN 02/19/19 02/19/19 amoxicillin-pot clavulanate 1 tab PO BID #14 tab 02/19/19 [Augmentin] Previous Rx's Medication Instructions Recorded amoxicillin-pot clavulanate 1 tab PO BID #14 tab 02/19/19 [Augmentin] Allergies Allergy/AdvReac Type Severity Reaction Status Date / Time No Known Allergies Allergy Unverified 02/19/19 16:55 General Stated Complaint: DentalOral LILLY: 4 Review of Systems Constitutional Constitutional: Reports as per HPI, Denies chills, Denies fatigue, Denies fever(s), Denies headache(s) and Denies poor appetite Eyes Eyes: Denies change in vision and Denies irritation ENT Ears, Nose, Mouth, and Throat: Reports as per HPI, Reports dental pain, Denies dysphagia, Denies dizziness, Denies dry mouth, Denies ear discharge, Denies otalgia, Reports facial pain, Denies headache(s), Denies hoarseness, Denies lip swelling, Denies nasal congestion, Denies odynophagia and Denies sore throat Cardiovascular Cardiovascular: Reports as per HPI and Denies chest pain Respiratory Respiratory: Reports as per HPI and Denies cough Gastrointestinal Gastrointestinal: Reports as per HPI, Denies dysphagia, Denies nausea, Denies odynophagia and Denies vomiting Integumentary/Breasts Skin/Breast: Reports as per HPI, Denies erythema, Denies rash and Denies skin pain Neurologic Neurologic: Reports as per HPI, Denies dizziness and Denies headache(s) Endocrine Endocrine: Denies fatigue Allergic/Immunologic Allergic/Immunologic: Denies lip swelling [facility] Medical History Chronic back pain (Acute) Chronic shoulder pain (Acute) Explosive personality disorder (Acute) Seizure disorder (Chronic) Surgical History History of surgical removal of pilonidal cyst (Acute) Social History Smoking/Tobacco Use Status: Current every day Tobacco Type: cigarettes Alcohol Intake: never Drug use: Never Substance use type: does not use Do you feel safe at home: Yes Do you feel safe in your relationship?: Yes Exam Const General: cooperative, healthy appearing, comfortable, no acute distress, well developed and well groomed Nutritional Appearance: average body habitus and well nourished Orientation: alert and awake [facility] Head: normal to inspection, normocephalic and atraumatic Ears: hearing grossly normal bilaterally, external ears normal and TM's normal bilaterally General nose exam: external nose normal and nares normal Face and sinus: normal facial exam, sinuses nontender and face symmetric Mouth: lip normal, tongue normal, salivary ducts normal, oropharynx normal, no muffled voice, no trismus and No restricted motion Teeth and gingiva: abnormal dentition and poor dentition (fractured #30 tooth, buccal side pain and erythema, no area of fluctuance) Throat: posterior oropharynx normal, tonsils normal and uvula midline Eyes General: appearance normal, both eyes and all related structures Neck Neck: normal visual inspection, full ROM, no lymphadenopathy, supple and no anterior neck swelling Resp Effort & Inspection: normal respiratory effort, able to speak in complete sentences and no respiratory distress Auscultation: clear to auscultation bilaterally, no rales, no rhonchi and no wheezes Cardio Rate: regular rate Rhythm: regular rhythm Heart Sounds: S1 normal and S2 normal Skin General skin exam: no rashes or lesions noted Trauma: no lacerations or abrasions Neuro General: alert and awake Cognition: normal cognition Speech: speech normal Gait: normal gait Psych Appearance: grossly normal and well kempt Mental Status: mental status grossly normal Speech and Movement: speech and movement normal Course Vital Signs Vital signs: Vital Signs Temperature 36.8 C 02/19/19 16:51 Pulse 97 H 02/19/19 16:51 Respiratory Rate 18 02/19/19 16:51 Blood Pressure 133/75 02/19/19 16:51 Pulse Oximetry 94 L 02/19/19 16:51 Temperature 36.8 C 02/19/19 16:51 Temperature Source Skin 02/19/19 16:51 Pulse 97 H 02/19/19 16:51 Respiratory Rate 18 02/19/19 16:51 Respiratory Effort Non-Labored 02/19/19 16:56 Blood Pressure 133/75 02/19/19 16:51 Blood Pressure Position Sitting 02/19/19 16:51 Pulse Oximetry 94 L 02/19/19 16:51 Oxygen Delivery Method Room Air 02/19/19 16:51 Oxygen Flow Rate 0 02/19/19 16:51 Pain Level 4 02/19/19 16:51 Comment 02/19/19 16:51
== END 2019-02-19 17:18 | disposition home or self-care (01) ==
PROVIDERS: Emergency Provider Physician Assistant; PCP Family Medicine
DX: K04.7 Periapical abscess without sinus (principal); K03.81 Cracked tooth
CPT/HCPCS: 99283

== ENCOUNTER 2019-05-13 02:02 | Emergency (ER) | payer MEDICAID, SELFPAY ==
[2019-05-13 02:04] VITALS: BP 125/81; PULSE 91; RESP 18; TEMP 36.4; O2SAT 95
--- NOTE | 2019-05-13 02:08 | ED.GENADUL_ITS ---
Discharge Plan Disposition Patient Disposition: HOME Condition: Good Discharge Details Chief Complaint: EyeProblem Clinical Impression: Foreign body of right eye, Corneal rust ring of right eye Primary Care Provider: Suzy Anderson V ED Provider: Manuel Armstrong Home Meds and New Rx's Prescriptions: Continued sumatriptan succinate [Imitrex] 50 MG tablet 50 mg PO DAILY RF: 0 gabapentin 100 MG capsule 100 mg PO DAILY PRNRF: 0 carbamazepine [Tegretol] 200 MG tablet 200 mg PO TID RF: 0 acetaminophen 500 mg Tablet 1,000 mg PO PRN PRNRF: 0 Discharge Instructions Additional Instructions: You had a metallic foreign body in the eye which was removed. There is a significant residual rust ring and possible residual metal embedded in the cornea. We will start you on antibiotic eye ointment. I will contact someone from [facility] in the morning to see if they would be able to see you sometime today. Return to ED for increasing pain, change in vision, other concerns or problems. Referrals: [facility] [Outside] Medical Decision Making Patient noted to have metallic foreign body with significant rust ring embedded in the cornea almost directly within line of the pupil. Under slit lamp exam majority of metallic foreign body removed with cotton swab. Significant residual rust ring and partial metallic body still present. I irrigated out after removal. Erythromycin ointment placed. Will refer to [facility] for follow-up. I will contact him this morning to try to make arrangements for patient to be seen today. HPI General Mode of arrival: ambulatory . Date/Time Provider Initiated Documentation: 05/13/19 02:08 . Limitations to Documentation: no limitations . Information obtained by: patient and RN notes reviewed . HPI Narrative: Patient presents to ED with complaint of foreign body in his right eye. Reports that he first noticed it yesterday morning. Has been just shy of 24 hours. He has not been able to irrigate or remove the foreign body on his own. He has significant photosensitivity and feels much better with the right eye closed. His vision is normal if he opens his eyes but it causes discomfort. Presents now for evaluation. Related Data Home Medications Medication Instructions Recorded Confirmed gabapentin 100 mg PO DAILY PRN 09/05/17 05/13/19 sumatriptan succinate [Imitrex] 50 mg PO DAILY 09/05/17 05/13/19 carbamazepine [Tegretol] 200 mg PO TID 12/24/17 05/13/19 acetaminophen 1,000 mg PO PRN PRN 02/19/19 05/13/19 Allergies Allergy/AdvReac Type Severity Reaction Status Date / Time No Known Allergies Allergy Unverified 05/13/19 02:57 General Stated Complaint: EyeProblem LILLY: 4 Review of Systems Constitutional Constitutional: Denies fever(s) Eyes Eyes: Reports blurry vision, Denies change in vision, Reports eye pain and Reports photophobia [facility] Medical History Chronic back pain (Acute) Chronic shoulder pain (Acute) Explosive personality disorder (Acute) Seizure disorder (Chronic) Surgical History History of surgical removal of pilonidal cyst (Acute) Social History Smoking/Tobacco Use Status: Current every day Tobacco Type: cigarettes Alcohol Intake: never Drug use: Never Substance use type: does not use Do you feel safe at home: Yes Do you feel safe in your relationship?: Yes Exam Const General: cooperative, comfortable and no acute distress Orientation: alert and oriented x3 HENMT Head: normocephalic and atraumatic Face and sinus: normal facial exam Eyes Periorbital: periorbital findings normal Eyelids: eyelid abnormality right upper eyelid swelling; nontender Conjunctivae: conjunctival abnormality right conjunctival injection Sclera: sclerae normal Cornea: corneas abnormal on the right fluorescein used and foreign body metallic and with rust ring present Pupils: PERRL EOM: EOM intact bilaterally Other: Refused to do visual acuity. Course Vital Signs Vital signs: Vital Signs Temperature 97.5 F L 05/13/19 02:04 Pulse 91 H 05/13/19 02:04 Respiratory Rate 18 05/13/19 02:04 Blood Pressure 125/81 05/13/19 02:04 Pulse Oximetry 95 05/13/19 02:04 Temperature 97.5 F L 05/13/19 02:04 Temperature Source Skin 05/13/19 02:04 Pulse 91 H 05/13/19 02:04 Respiratory Rate 18 05/13/19 02:04 Blood Pressure 125/81 05/13/19 02:04 Blood Pressure Position Sitting 05/13/19 02:04 Pulse Oximetry 95 05/13/19 02:04 Oxygen Delivery Method Room Air 05/13/19 02:04 Oxygen Flow Rate 0 05/13/19 02:04 Pain Level 9 05/13/19 02:04 Procedures FB Removal Eye Location: eye (R) Topical anesthetic used: tetracaine Foreign body: metal Evidence of corneal penetration: No Technique: cotton tip swab Procedure performed under: direct visualization with magnification Post-procedure medication: ophthalmic antibiotic Patient tolerated procedure: well Complications: incomplete foreign body removal and residual rust ring
[2019-05-13] MEDS: Fluorescein STRIPS 100/BOX 1 MG OP (02:20)
[2019-05-13] MEDS: Tetracaine 0.5% 4 ML BTL OP (02:20)
[2019-05-13] MEDS: Erythromycin Ophth Oint 3.5 GM TUBE OD (03:03)
[2019-05-13 03:52] VITALS: BP 125/81; PULSE 91; RESP 18; TEMP 36.4; O2SAT 95
== END 2019-05-13 03:00 | disposition home or self-care (01) ==
LOC: ER 02:55
PROVIDERS: Emergency Provider Emergency Medicine; PCP Family Medicine
DX: T15.01XA Foreign body in cornea, right eye, initial encounter (principal); X58.XXXA Exposure to other specified factors, initial encounter
CPT/HCPCS: 65222; 99284; 99283

== ENCOUNTER 2019-06-19 17:35 | Emergency (ER) | payer MEDICAID, SELFPAY ==
[2019-06-19 17:39] VITALS: BP 137/86; PULSE 73; TEMP 36.7; O2SAT 97
--- NOTE | 2019-06-19 17:47 | W.ED.GENAD ---
Discharge Plan Disposition Patient Disposition: HOME Condition: Fair Discharge Details Chief Complaint: GenMedical Clinical Impression: Left-sided face pain Primary Care Provider: Suzy Anderson V ED Provider: Ramona Dangelo Home Meds and New Rx's Prescriptions: Continued sumatriptan succinate [Imitrex] 50 MG tablet 50 mg PO PRN RF: 0 gabapentin 100 MG capsule 100 mg PO DAILY PRNRF: 0 acetaminophen 500 mg Tablet 1,000 mg PO PRN PRNRF: 0 Discharge Instructions Instructions: Atypical Facial Pain (ED) Additional Instructions: Labs are reassuring at this time. I am concerned that you need to be developing an infection I would like for you to follow-up closely with your primary care in the next 48 hours. Please encourage water intake. Tylenol and/or ibuprofen as needed for discomfort. You may use the Imitrex as previously prescribed if you have recurrent severe headache. If you develop fever/chills, neck pain, rash, shortness of breath, difficulty breathing or other new/worsening symptom please seek care urgently once again. Referrals: Suzy Anderson MD [Primary Care Provider] - Discharge Data Discharge Date/Time-TO BE ENTERED AT DEPARTURE: 06/19/19 19:45 Medical Decision Making Patient is a pleasant 44-year-old male presenting today with chief complaint of left-sided facial and head pain. He reports the pain began yesterday. Reports yesterday he woke with a throbbing headache. Since then today, he has had pain primarily at the left jehovah's witness. Also endorses some pain over the left maxillary sinus and left upper dentition as well as the left ear. He denies any fevers or chills. No pain in his neck. Endorses mild nausea but no vomiting. No change in his appetite. Does report that he is recently been exposed to flu. He reports that he has had headaches historically but typically not this severe. He did not have thunderclap or sudden onset of headache, states that he awoke with the discomfort headache did not wake him up. On exam, patient is resting comfortably. He appears nontoxic. Patient is exquisitely tender directly over the left jehovah's witness. He denies any visual changes, will obtain visual acuity. Visual field testing is intact. Pupils are equal round and reactive. He has no dental pain on exam, no pain to percussion over the left maxillary sinus. Left tympanic membrane is mildly erythematous but no bulging or loss of landmarks. Remaining exam is normal. Visual acuity exam was equal bilaterally I am concerned for temporal arteritis given the severity of his pain over the left jehovah's witness. Will screen with labs. His was also exposed to influenza, will obtain a rapid flu testing. I did consider imaging but as the patient does not have any rash, nuchal rigidity, fevers and appears otherwise well, I do not feel that imaging is warranted at this time. Patient also does not have evidence of acute CVA as he has a normal neurologic exam. His tenderness is maximal over the left temporal region as he states that she exquisitely tender in this area, I find that this is likely the most driving source of his discomfort. Also considered otitis but there is no findings to suggest this on exam, sinusitis, no pain with palpation as well as dental infection but no pain was elicited with this either. Labs significant for white count of 11.4. CBC quite minimally elevated patient does not have a significant shift. ESR is normal at 11. CRP is minimally elevated 0.64. At this point, I do not find that this is significant enough to suggest temporal arteritis. I did asked that he have close follow-up with primary care and that he be evaluated in the next 48 hours. I am concerned that he may be developing some unusual etiology but at this point, I do not see any evidence of emergent pathology that is causing his symptoms. I encouraged Tylenol and/or ibuprofen as needed for discomfort. We did discuss [id number] and home remedies to help with symptomatic management. As he is having discomfort over the left maxillary sinus as well as left ear pain, we discussed that this may be viral in nature despite the negative influenza test he was given strict return precautions. He will follow-up with primary care soon as possible. All his questions and concerns were addressed and he is in agreement this plan. HPI General Mode of arrival: ambulatory. Date/Time Provider Initiated Documentation: 06/19/19 17:47. Limitations to Documentation: no limitations. Information obtained by: patient and RN notes reviewed. History of Present Illness 44 year old M presents to the emergency department with the chief complaint of left sided ear, dental and jehovah's witness pain, described as severe, with intensity rated at 8. Quality is described as stabbing, and is localized to the face. Patient reports no radiation. Patient started experiencing this day(s) (1) and it has been constant. No relieving factors improve symptom(s), No exacerbating factors reported . Patient notes headaches and nausea/vomiting (endorses mild nausea, no vomiting); denies confusion, cough, diaphoresis, fever/chills, loss of appetite, rash, shortness of breath and weakness. Patient did receive the following treatments prior to arrival, none Related Data Home Medications Medication Instructions Recorded Confirmed gabapentin 100 mg PO DAILY PRN 09/05/17 06/19/19 sumatriptan succinate [Imitrex] 50 mg PO PRN 09/05/17 06/19/19 acetaminophen 1,000 mg PO PRN PRN 02/19/19 06/19/19 Allergies Allergy/AdvReac Type Severity Reaction Status Date / Time No Known Allergies Allergy Unverified 06/19/19 17:43 General Stated Complaint: GenMedical LILLY: 4 Review of Systems Constitutional Constitutional: Reports as per HPI, Denies chills, Reports fatigue, Denies fever(s), Denies frequent falls, Reports headache(s), Denies snoring and Denies weakness Eyes Eyes: Reports as per HPI, Denies blurry vision, Denies change in vision and Reports photophobia ENT Ears, Nose, Mouth, and Throat: Denies change in voice, Denies vertigo, Denies dizziness, Denies ear discharge, Reports otalgia (left), Reports facial pain, Reports headache(s), Denies hearing loss, Denies hoarseness, Denies lip swelling, Denies mouth pain, Denies neck pain, Denies post nasal drip, Reports sinus pain, Denies sinus pressure, Denies sore throat, Denies throat swelling and Denies tongue swelling Cardiovascular Cardiovascular: Reports as per HPI, Denies chest pain, Denies lightheadedness, Denies radiating jaw, neck or arm pain, Denies dyspnea and Denies dyspnea on exertion Respiratory Respiratory: Reports as per HPI, Denies chest congestion, Denies cough, Denies dyspnea, Denies dyspnea on exertion, Denies snoring, Denies stridor and Denies wheezing Gastrointestinal Gastrointestinal: Reports as per HPI, Denies abdominal pain, Denies change in bowel habits, Denies nausea and Denies vomiting Genitourinary Genitourinary: Reports system reviewed and no additional complaints, except as docu (denies change in urinary habits) Musculoskeletal Musculoskeletal: Reports as per HPI, Denies back pain, Denies myalgias, Denies muscle cramps, Denies neck pain and Denies numbness Integumentary/Breasts Skin/Breast: Reports as per HPI and Denies rash Neurologic Neurologic: Reports as per HPI, Denies abnormal movements, Denies abnormal speech, Denies behavioral changes, Denies confusion, Denies vertigo, Denies dizziness, Denies frequent falls, Reports headache(s), Denies focal weakness, Denies numbness, Denies sensory deficit and Denies weakness Psychiatric Psychiatric: Denies behavioral changes and Denies confusion Endocrine Endocrine: Reports fatigue Allergic/Immunologic Allergic/Immunologic: Denies lip swelling, Denies throat swelling, Denies tongue swelling and Denies wheezing [facility] Medical History Chronic back pain (Acute) Chronic shoulder pain (Acute) Explosive personality disorder (Acute) Seizure disorder (Chronic) Surgical History History of surgical removal of pilonidal cyst (Acute) Social History Smoking/Tobacco Use Status: Current every day Tobacco Type: cigarettes Alcohol Intake: never Drug use: Never Substance use type: does not use Do you feel safe at home: Yes Do you feel safe in your relationship?: Yes Exam Const General: cooperative, healthy appearing, uncomfortable, no acute distress, well developed and well groomed Nutritional Appearance: average body habitus and well nourished Orientation: alert, awake and oriented x3 HENMT Head: normal to inspection, no palpable skull fracture, normocephalic, atraumatic and temporal artery tenderness left temporal Ears: hearing grossly normal bilaterally, external ears normal and TM's normal bilaterally General nose exam: external nose normal Face and sinus: normal facial exam, sinuses nontender, face symmetric, no erythema, no edema, no fluctuance and no sinus tenderness Mouth: oral mucosae normal, lip normal, tongue normal, oropharynx normal, moist mucous membranes, no audible dysphonia, no muffled voice, no trismus and No restricted motion Teeth and gingiva: poor dentition (no evidence of acute infection) Throat: posterior oropharynx normal Eyes General: appearance normal, both eyes and all related structures Alignment and Position: alignment normal Periorbital: periorbital findings normal Eyelids: eyelids normal Sclera: sclerae normal Cornea: corneas normal Pupils: PERRL EOM: EOM intact bilaterally Neck Neck: normal visual inspection, full ROM, no lymphadenopathy and no meningeal signs Resp Effort & Inspection: normal respiratory effort, able to speak in complete sentences and no respiratory distress Auscultation: clear to auscultation bilaterally, no rales, no rhonchi and no wheezes Cardio Rate: regular rate Rhythm: regular rhythm Heart Sounds: S1 normal and S2 normal GI Inspection: normal to inspection and non-distended Palpation: soft, no hepatosplenomegaly, not firm, no guarding, not rigid and nontender Percussion: normal to percussion Auscultation: normal bowel sounds Back/Spine/Pelvis Cervical Spine: normal cervical lordosis and cervical ROM normal Skin General skin exam: no rashes or lesions noted Neuro General: alert, awake and oriented x3 Cranial Nerves: CN's II-XI intact bilaterally Cognition: normal cognition Speech: speech normal Gait: normal gait Motor: muscle tone normal throughout, strength 5/5 throughout, no pronator drift, no movement abnormalities noted and no fasciculations Sensory Exam: no sensory deficits noted Coordination: [id number] test normal and [id number] test normal Extrem General: normal to inspection, normal capillary refill, no pedal edema and no calf tenderness Psych Appearance: grossly normal and well kempt Mental Status: mental status grossly normal Speech and Movement: speech and movement normal Course Vital Signs Vital signs: Vital Signs Temperature 36.7 C 06/19/19 17:39 Pulse 73 06/19/19 17:39 Blood Pressure 137/86 06/19/19 17:39 Pulse Oximetry 97 06/19/19 17:39 Temperature 36.7 C 06/19/19 17:39 Temperature Source Skin 06/19/19 17:39 Pulse 73 06/19/19 17:39 Blood Pressure 137/86 06/19/19 17:39 Blood Pressure Position Sitting 06/19/19 17:39 Pulse Oximetry 97 06/19/19 17:39 Oxygen Delivery Method Room Air 06/19/19 17:39 Oxygen Flow Rate 0 06/19/19 17:39 Pain Level 8 06/19/19 17:39
[2019-06-19] MEDS: Normal Saline 1,000 ML 1000 ML IV (18:19)
[2019-06-19 18:38] LABS: Abs Immature Grans 0.01 k/cumm (0.0-0.09); Absolute Monocyte Count 0.75 k/cumm (0.11-0.7); Basophils % 0.3; Eosinophils % 3.1; HCT 48.4 % (40.0-50.0); HGB 16.8 g/dL (13.5-17.5); Immature Grans % 0.1 %; Mean Corp. HGB Concentration 34.7 g/dL (32.0-36.0); Mean Corpuscular Hemoglobin 30.8 pg (27.0-33.0); Mean Corpuscular Volume 88.8 fL (80-95); Mean Platelet Volume 11.2 fL (8.0-11.0); Monocytes % 6.5; Platelet Count 224 x1000/uL (130-400); RBC 5.45 m/cumm (4.50-6.00); RBC Distribution Width 12.9 % (11.8-14.1); White Blood Cell Count 11.47 k/cumm (4.4-10.8)
[2019-06-19 18:40] LABS: Absolute Basophil Count 0.03 k/cumm (0.0-0.2); Absolute Eosinophil Count 0.36 k/cumm (0.0-0.7); Absolute Neutrophil Count 7.23 k/cumm (1.2-6.7)
[2019-06-19 18:51] LABS: ALT 18 U/L (16-63); AST 20 U/L (15-37); Albumin 4.1 g/dL (3.4-5.0); Alkaline Phosphatase 82 U/L (46-116); Anion Gap 8.3 mmol/L (3-11); BUN 18 mg/dL (7-18); Bilirubin, Total 0.3 mg/dL (0.2-1.0); C-Reactive Protein 0.64 mg/dL (0.0-0.3); CO2 28.7 mmol/L (21.0-32.0); CREATININE 1.16 mg/dL (0.70-1.30); Calcium 8.6 mg/dL (8.5-10.1); Chloride 103 mmol/L (98-107); Glucose 93 mg/dL (74-106); Potassium 3.5 mmol/L (3.5-5.1); Sodium 140 mmol/L (136-145); Total Protein 7.6 g/dL (6.4-8.2)
[2019-06-19 19:18] LABS: ESR 11 mm/hr (0-15)
[2019-06-19] MEDS: Ibuprofen 600 MG TAB PO (19:36)
--- NOTE | 2019-06-19 19:41 | NUR.NOTE ---
Nursing Note: faxed referal to primary to follow up w/in two days 06/19/19
== END 2019-06-19 19:45 | disposition home or self-care (01) ==
PROVIDERS: Emergency Provider Physician Assistant; PCP Family Medicine
DX: R51 Headache (principal); R11.0 Nausea
CPT/HCPCS: 36415; 80053; 85652; 87449; 96360; 99284; 85025; 86140

== ENCOUNTER 2019-09-19 10:28 | Outpatient (CLI) | payer MEDICAID, SELFPAY ==
--- NOTE | 2019-09-19 08:25 | DI.RAD_ITS ---
EXAM: XR CERVICAL SPINE COMP 4-5V CLINICAL HISTORY: NECK PAIN, M54.2 TECHNIQUE: COMPARISON: No exams were available for comparison FINDINGS: Six views were obtained. There is slight right torticollis and some loss of the cervical lordosis. The the intervertebral disc spaces are well maintained. No bony abnormality seen. Neural foramina a re well maintained. IMPRESSION: Slight torticollis and loss of lordotic curve may represent muscle spasm. No other significant findi ngs.
== END 2019-09-19 10:48 ==
PROVIDERS: PCP Family Medicine; Visit Provider Nurse Practitioner Family
DX: M54.2 Cervicalgia (principal); M43.6 Torticollis
CPT/HCPCS: 72050

== ENCOUNTER 2020-02-06 02:01 | Outpatient (CLI) | payer MEDICAID, SELFPAY ==
--- NOTE | 2020-02-06 | DI.RAD_ITS ---
EXAM: XR LUMBAR SPINE COMPLETE CLINICAL HISTORY: ACUTE LOW BACK PAIN,M54.5. TECHNIQUE: 2D digital imaging was performed. COMPARISON: CR LUMBAR SPINE COMPLETE from 10/15/2016 FINDINGS: Again noted is bilateral L3 spondylolysis. There is minimal retrolisthesis of L4 with respect to L3. There is slight narrowing of the L3-4 disc. Remaining disc spaces are well maintained. There are no significant degenerative changes or evidence of scoliosis. SI joints are unremarkable. IMPRESSION: L3 spondylolysis and minimal L3-4 spondylolisthesis. Mild L3-4 disc space narrowing. DATA REPOSITORY: RADIATION DOSE DELIVERED:
== END 2020-02-06 02:21 ==
PROVIDERS: PCP Family Medicine; Visit Provider Nurse Practitioner Family
DX: M43.06 Spondylolysis, lumbar region (principal); M48.061 Spinal stenosis, lumbar region without neurogenic claudication
CPT/HCPCS: 72110

== ENCOUNTER 2020-03-05 08:25 | Outpatient (REF) | payer MEDICAID, SELFPAY ==
[2020-03-05 21:05] LABS: Anion Gap 5.6 mmol/L (3-11); BUN 15 mg/dL (7-18); CO2 28.4 mmol/L (21.0-32.0); CREATININE 1.07 mg/dL (0.70-1.30); Calculated LDL 128 mg/dL (<100); Chloride 104 mmol/L (98-107); Cholesterol 193 mg/dL (<200); Glucose 93 mg/dL (74-106); HDL Cholesterol 20 mg/dL (40-60); Potassium 4.3 mmol/L (3.5-5.1); Sodium 138 mmol/L (136-145); Triglyceride 225 mg/dL (<150)
[2020-03-12 11:50] LABS: Testosterone, Free 18.9 ng/dL (4.46-17.1); Testosterone, Total 823 ng/dL (240-950)
== END 2020-03-05 08:45 ==
LOC: NCHCN 08:25
PROVIDERS: PCP Family Medicine; Visit Provider Nurse Practitioner Family
DX: M54.5 Low back pain (principal); F52.21 Male erectile disorder
CPT/HCPCS: 80048; 80061; 84402; 84403

== ENCOUNTER 2022-01-11 03:21 | Emergency (ER) | payer MEDICAID, SELFPAY ==
[2022-01-11 03:26] VITALS: BP 122/80; PULSE 84; RESP 16; TEMP 36.7; O2SAT 95
[2022-01-11 03:38] LABS: Bilirubin Negative (Negative); Blood Large (Negative); Clarity Sl Cloudy (Clear); Glucose 100 mg/dL (Negative); Ketones Negative (Negative); Leukocyte Esterase Small (Negative); Nitrite Positive (Negative); Specific Gravity 1.025 (1.005-1.025)
[2022-01-11 03:42] LABS: Bacteria Few HPF (Negative); C & S Indicated? Yes; Casts Negative LPF (Negative); Crystals Negative HPF (Negative); Epithelial Cells Few HPF (Negative); Mucus Negative (Negative); RBC 20-50 HPF (0-2); WBC 20-50 HPF (0-5)
--- NOTE | 2022-01-11 03:48 | W.ED.GENAD ---
Discharge Plan Disposition Patient Disposition: HOME Condition: Good Discharge Details Clinical Impression: Acute UTI Primary Care Provider: Suzy Anderson V ED Provider: Brian Zafar Home Meds and New Rx's Prescriptions: New ciprofloxacin HCl [Cipro] 500 mg tablet 500 mg PO BID 7 Days Qty: 14 0RF No Action cyclobenzaprine 10 mg Tablet 10 mg PO BID PRN epinephrine 0.3 mg/0.3 mL Auto-Injector 0.3 mg IM ONCE sumatriptan succinate [Imitrex] 50 MG tablet 50 mg PO PRN Discharge Instructions Instructions: Urinary Tract Infection in Men (ED) Additional Instructions: At this time you have evidence of a urinary tract infection. Please take the antibiotic as directed. It is been sent to your pharmacy on file. Please drink plenty fluids, please drink cranberry concentrate. If you notice any worsening of your symptoms, or any new symptoms such as vomiting, diarrhea, fever, chills, shortness of breath, chest pain, numbness, weakness, or fainting , please return immediately to the emergency department for reevaluation. Please follow up with your primary care provider as soon as possible for reassessment and reevaluation. As always, it was a pleasure participating in your medical care today. Referrals: Suzy Anderson MD [Primary Care Provider] - Medical Decision Making 46-year-old male with a past medical history of urinary tract infections in the past, presents today for evaluation of UTI symptoms. For the last 2 days he has had increased urinary frequency, mild burning with urination. He denies flank pain, fever or chills. He denies any urethral discharge. He states that he has had urinary tract infections in the past and it felt exactly like this. He denies any other complaints at this time. No other modifying factors. He states that he is monogamous with his . He denies any previous STDs. He states that his does have recurrent UTIs and he is concerned that he may be getting them from her Exam demonstrates an unremarkable genital exam, no urethral discharge. No penile tenderness or scrotal tenderness or prostatic tenderness. Symptoms appear consistent with urinary tract infection. Urinalysis shows evidence of elevated WBCs in the setting of leuk esterase and nitrites. Review of the patient's previous cultures demonstrate positive cultures for Enterobacter cloacae a, which was detectable to caitlin quinolones. We will give ciprofloxacin 500 twice daily for treatment. Recommend continued fluids. We will send gonorrhea and Chlamydia testing out of an abundance of precaution. Discussed red flags for which to return. I have extensively reviewed the treatment plan and discharge instructions with the patient. I have addressed all patient concerns at this time. The patient was made aware of what symptoms to monitor for that would warrant a return to the emergency department. Discussed the plan with the patient, they demonstrate verbal understanding and agreement with our assessment and plan at this time. The documentation in this chart was dictated using [employer] dictation software. Please excuse any dictation errors. HPI General Date/Time Provider Initiated Documentation: 01/11/22 03:39. HPI Narrative: 46-year-old male with a past medical history of urinary tract infections in the past, presents today for evaluation of UTI symptoms. For the last 2 days he has had increased urinary frequency, mild burning with urination. He denies flank pain, fever or chills. He denies any urethral discharge. He states that he has had urinary tract infections in the past and it felt exactly like this. He denies any other complaints at this time. No other modifying factors. He states that he is monogamous with his . He denies any previous STDs. He states that his does have recurrent UTIs and he is concerned that he may be getting them from her Related Data Home Medications Medication Instructions Recorded Confirmed sumatriptan succinate 50 mg tablet 50 mg PO PRN 09/05/17 01/11/22 (Imitrex) cyclobenzaprine 10 mg tablet 10 mg PO BID PRN 02/25/20 01/11/22 epinephrine 0.3 mg/0.3 mL 0.3 mg IM ONCE 02/25/20 01/11/22 injection, auto-injector ciprofloxacin HCl 500 mg tablet 500 mg PO BID 7 days #14 tabs 01/11/22 (Cipro) Previous Rx's Medication Instructions Recorded ciprofloxacin HCl 500 mg tablet 500 mg PO BID 7 days #14 tabs 01/11/22 (Cipro) Allergies Allergy/AdvReac Type Severity Reaction Status Date / Time indomethacin Allergy Severe Unverified 01/11/22 03:37 General Stated Complaint: Urinary LILLY: 3 Review of Systems All systems reviewed & are unremarkable except as noted in HPI and below PFSH All Active Problems Acute UTI (Acute) Left-sided face pain (Acute) Medical History Acute low back pain Allergies Anger Bursitis Chronic back pain Chronic shoulder pain Cigarette smoker Depression Erectile dysfunction Explosive personality disorder Family history of aortic stenosis Family history of heart disease Hx of allergic reaction Migraine headache Neck pain Pilonidal cyst Seizure disorder Tobacco abuse Surgical History History of surgical removal of pilonidal cyst Social History Smoking/Tobacco Use Status: Current every day Tobacco Type: cigarettes Smoking risk assessment performed?: Yes Alcohol Intake: never Drug use: Never Substance use type: does not use Do you feel safe at home: Yes Do you feel safe in your relationship?: Yes Exam Narrative Exam Narrative: 1.Const: Well-nourished, Well-developed, appearing stated age 2.Eyes: PERRL, no conjunctival injection, and symmetrical lids. 3.ENT: Atraumatic external nose and ears. Moist MM. Neck: Symmetric, trachea midline, No thyromegaly. 4.CVS: +S1/S2, No murmurs or gallops. Peripheral pulses 2+ and equal in all extremities. Brisk capillary refill in all extremities. 5.RESP: Unlabored respiratory effort. Clear to auscultation bilaterally. No wheezes rales or rhonchi 6.GI: Soft, Nontender/Nondistended, No hepatosplenomegaly. No guarding or rebound. Genital exam demonstrates nontender scrotum penis, no urethral discharge. No rashes or lesions. 7.MSK: Normocephalic/Atraumatic, Extremities w/o deformity or ttp No cyanosis or clubbing, Normal movement of all extremities 8.Skin: Warm, Dry. No rashes or lesions. 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 Sensation grossly intact, no focal neurologic deficits. 10.Psych: (AAO) x3. Appropriate mood and affect Course Vital Signs Vital signs: Vital Signs Temperature 36.7 C 01/11/22 03:26 Pulse 84 01/11/22 03:26 Respiratory Rate 16 01/11/22 03:26 Blood Pressure 122/80 01/11/22 03:26 Pulse Oximetry 95 01/11/22 03:26 Temperature 36.7 C 01/11/22 03:26 Temperature Source Temporal Artery Scan 01/11/22 03:26 Pulse 84 01/11/22 03:26 Respiratory Rate 16 01/11/22 03:26 Respiratory Effort 01/11/22 03:26 Blood Pressure 122/80 01/11/22 03:26 Pulse Oximetry 95 01/11/22 03:26 Oxygen Delivery Method Room Air 01/11/22 03:26 Oxygen Flow Rate 0 01/11/22 03:26 Pain Level 0 01/11/22 03:38 Lab/Test Results Lab/Test Results: 01/11/22 03:30 Urine - Reflex from Ua Urine Culture - Pending Laboratory Tests Range/Units 01/11/22 03:30 Urine Color (Yellow) Yellow Urine Clarity (Clear) Sl Cloudy Urine pH (5-8) 6.0 Ur Specific [place] (1.005-1.025) 1.025 Urine Protein (Negative) mg/dL 100 H Urine Ketones (Negative) mg/dL Negative Urine Blood (Negative) Large H Urine Nitrite (Negative) Positive H Urine Bilirubin (Negative) Negative Urine Urobilinogen (Up TO 0.2) EU/dL 2.0 H Ur Leukocyte Esterase (Negative) Small H Urine RBC (0-2) HPF 20-50 H Urine WBC (0-5) HPF 20-50 H Ur Epithelial Cells (Negative) HPF Few Urine Crystals (Negative) HPF Negative Urine Bacteria (Negative) HPF Few Urine Casts (Negative) LPF Negative Urine Mucus (Negative) Negative Ur Culture Indicated? Yes Urine Glucose (Negative) mg/dL 100
== END 2022-01-14 21:00 | disposition home or self-care (01) ==
PROVIDERS: Emergency Provider Student in an Organized Health Care Education/Training Program; PCP Family Medicine
DX: N39.0 Urinary tract infection, site not specified (principal); F17.210 Nicotine dependence, cigarettes, uncomplicated
CPT/HCPCS: 87077; 87491; 87591; 99283; 81003; 81015; 87086; 87186; 99284

== ENCOUNTER 2022-05-15 14:46 | Emergency (ER) | payer MEDICAID, SELFPAY ==
[2022-05-15 14:51] VITALS: BP 123/75; PULSE 90; RESP 16; TEMP 36.6; O2SAT 97
--- NOTE | 2022-05-15 15:32 | ED.GENADUL_ITS ---
Discharge Plan Disposition Patient Disposition: Home Condition: Stable Discharge Details Clinical Impression: Laceration of right hand Primary Care Provider: Suzy Anderson V ED Provider: Bradley Tierney Home Meds and New Rx's Prescriptions: Continued epinephrine 0.3 mg/0.3 mL Auto-Injector 0.3 mg IM ONCE sumatriptan succinate [Imitrex] 50 MG tablet 50 mg PO PRN Discharge Instructions Instructions: Laceration (ED) Additional Instructions: return in 7-10 days for evalaution for suture removal and sooner if signs of infection such as spreading redness from the wound or yellow/white discharge. Medical Decision Making 47 yo male who states he last had a tetanus vaccine 3-4 years ago comes in with right hand lac. He states just prior to arrival he cut it on a metal broke that was broken. He denies falls or other injuries. He arrives stable speaking in full sentences. He has a superficial 3cm laceration the mid posterior right hand. Full rom of the wrist and fingers, normal sensation and cap refill of the fingers. No findings to suggest tendon or neurovascular injury. Closed with 3 sutures without complications, advised to return in 7-10 days and sooner if signs of infection. No foreign body seen or felt on exa.m Differential Diagnosis Differential Diagnosis: laceration, abrasion HPI General Mode of arrival: ambulatory . Date/Time Provider Initiated Documentation: 05/15/22 14:47 . Limitations to Documentation: no limitations . Information obtained by: patient . History of Present Illness 47 year old M presents to the emergency department with the chief complaint of right hand laceration, described as mild, Patient started experiencing this hour(s) (1) and it has been constant. No relieving factors improve symptom(s), No exacerbating factors reported . Patient notes no other symptoms.. Patient did receive the following treatments prior to arrival, none Related Data Home Medications Medication Instructions Recorded Confirmed sumatriptan succinate 50 mg tablet 50 mg PO PRN 09/05/17 05/15/22 (Imitrex) epinephrine 0.3 mg/0.3 mL 0.3 mg IM ONCE 02/25/20 05/15/22 injection, auto-injector Allergies Allergy/AdvReac Type Severity Reaction Status Date / Time indomethacin Allergy Severe Unverified 05/15/22 14:56 General Stated Complaint: Laceration LILLY: 4 Review of Systems All systems reviewed & are unremarkable except as noted in HPI and below Constitutional Constitutional: Denies chills, Denies fever(s) and Denies weakness Cardiovascular Cardiovascular: Denies chest pain and Denies dyspnea Respiratory Respiratory: Denies cough and Denies dyspnea Gastrointestinal Gastrointestinal: Denies abdominal pain, Denies nausea and Denies vomiting Musculoskeletal Musculoskeletal: Denies joint swelling Neurologic Neurologic: Denies weakness PFSH All Active Problems (Updated 05/15/22 @ 15:36 by Bradley Tierney MD) Laceration of right hand (Acute) Left-sided face pain (Acute) Medical History Acute low back pain Allergies Anger Bursitis Chronic back pain Chronic shoulder pain Cigarette smoker Depression Erectile dysfunction Explosive personality disorder Family history of aortic stenosis Family history of heart disease Hx of allergic reaction Migraine headache Neck pain Pilonidal cyst Seizure disorder Tobacco abuse Surgical History History of surgical removal of pilonidal cyst Social History Smoking/Tobacco Use Status: Current every day Tobacco Type: cigarettes Smoking risk assessment performed?: Yes Alcohol Intake: never Drug use: Never Substance use type: does not use Do you feel safe at home: Yes Do you feel safe in your relationship?: Yes Exam Const General: no acute distress Orientation: alert HENMT Head: normal to inspection Ears: external ears normal General nose exam: external nose normal Mouth: moist mucous membranes Eyes General: appearance normal, both eyes and all related structures Neck Neck: normal visual inspection Resp Effort & Inspection: normal respiratory effort and able to speak in complete sentences Cardio Rate: regular rate Skin General skin exam: no rashes or lesions noted Neuro General: patient alert and patient oriented x3 Extrem General: normal to inspection Psych Mental Status: mental status grossly normal Course Vital Signs Vital signs: Vital Signs Temperature 36.6 C 05/15/22 14:51 Pulse 90 05/15/22 14:51 Respiratory Rate 16 05/15/22 14:51 Blood Pressure 123/75 05/15/22 14:51 Pulse Oximetry 97 05/15/22 14:51 Temperature 36.6 C 05/15/22 14:51 Temperature Source Temporal Artery Scan 05/15/22 14:51 Pulse 90 05/15/22 14:51 Respiratory Rate 16 05/15/22 14:51 Respiratory Effort Non-Labored 05/15/22 14:53 Blood Pressure 123/75 05/15/22 14:51 Blood Pressure Position Sitting 05/15/22 14:51 Pulse Oximetry 97 05/15/22 14:51 Oxygen Delivery Method Room Air 05/15/22 14:51 Oxygen Flow Rate 0 05/15/22 14:51 Pain Level 1 05/15/22 14:53 Procedures Laceration Laceration 1: Site: hand Side (If applicable): right Size (cm): 3 Description: linear Depth: simple, single layer Local Anesthetic: Lidocaine 1% and with Epi Amount of anesthesia used (mL): 5 Pre-repair: wound explored and irrigated extensively Skin layer closed with: nylon Size (cm): 5-0 Number of sutures: 3 Technique: simple, interrupted
[2022-05-15 15:42] VITALS: BP 117/84; PULSE 77; RESP 16; O2SAT 97
== END 2022-05-15 15:41 | disposition home or self-care (01) ==
PROVIDERS: Emergency Provider Emergency Medicine; PCP Family Medicine
DX: S61.411A Laceration without foreign body of right hand, initial encounter (principal); W26.8XXA Contact with other sharp object(s), not elsewhere classified, initial encounter
CPT/HCPCS: 12002

== ENCOUNTER 2022-08-11 17:02 | Emergency (ER) | payer MEDICAID, SELFPAY ==
[2022-08-11 17:06] VITALS: PULSE 70; RESP 18; TEMP 36.9; O2SAT 97
[2022-08-11 17:08] VITALS: BP 134/87
--- NOTE | 2022-08-11 21:07 | ED.GENADUL_ITS ---
Discharge Plan Disposition Patient Disposition: Home Discharge Details Clinical Impression: Cervicalgia Primary Care Provider: Suyz Anderson V ED Provider: Maria E Samuel Home Meds and New Rx's Prescriptions: New diazepam [Valium] 5 mg tablet 5 mg PO TID PRNQty: 10 0RF prednisone 20 mg tablet 40 mg PO ONCE Qty: 10 0RF prochlorperazine maleate [Compazine] 10 mg tablet 10 mg PO Q6H PRNQty: 10 0RF Continued epinephrine 0.3 mg/0.3 mL Auto-Injector 0.3 mg IM ONCE sumatriptan succinate [Imitrex] 50 MG tablet 50 mg PO PRN Discharge Instructions Instructions: Neck Pain (ED) Additional Instructions: take the prednisone daily take the valium as needed for muscular pain, use caution while taking this medication as this may make you feel tired it can also be addictive take the compazine as needed for headache take tylenol as needed for headache Referrals: Suzy Anderson MD [Primary Care Provider] - Discharge Data Discharge Date/Time-TO BE ENTERED AT DEPARTURE: 08/11/22 17:39 Medical Decision Making 47-year-old male appears well who presents with right-sided neck discomfort history of same, reproducible tenderness on exam with nonfocal neurological exam Patient did drive himself to the emergency department so we will try at home medications We will try Valium and prednisone with close outpatient reassessment No clinical evidence of meningitis, exam consistent with musculoskeletal etiology Return precautions reviewed and patient expressed understanding Discharged home in stable condition Medical Records Medical records reviewed: Yes I reviewed the patient's medical records. HPI General Date/Time Provider Initiated Documentation: 08/11/22 17:11 . HPI Narrative: This 47-year-old male presents with right-sided neck pain which started yesterday after he felt like he slept in an unusual position. He states he has history of similar pain on the side. Denies current headache. Denies any fever or chills. Denies any strength or sensation change or chest pain. States the pain is worse with movement and actually improved a few places pressure on the specific spot on the lateral side of his neck. Denies current vision change Related Data Home Medications Medication Instructions Recorded Confirmed sumatriptan succinate 50 mg tablet 50 mg PO PRN 09/05/17 08/11/22 (Imitrex) epinephrine 0.3 mg/0.3 mL 0.3 mg IM ONCE 02/25/20 08/11/22 injection, auto-injector diazepam 5 mg tablet (Valium) 5 mg PO TID PRN #10 tabs 08/11/22 prednisone 20 mg tablet 40 mg PO ONCE #10 tabs 08/11/22 prochlorperazine maleate 10 mg 10 mg PO Q6H PRN #10 tabs 08/11/22 tablet (Compazine) Previous Rx's Medication Instructions Recorded diazepam 5 mg tablet (Valium) 5 mg PO TID PRN #10 tabs 08/11/22 prednisone 20 mg tablet 40 mg PO ONCE #10 tabs 08/11/22 prochlorperazine maleate 10 mg 10 mg PO Q6H PRN #10 tabs 08/11/22 tablet (Compazine) Allergies Allergy/AdvReac Type Severity Reaction Status Date / Time indomethacin Allergy Severe Unverified 08/11/22 17:08 General Stated Complaint: Nk/Back Pain LILLY: 4 PFSH All Active Problems (Updated 08/11/22 @ 17:32 by BOZENA Carlos) Cervicalgia (Acute) Left-sided face pain (Acute) Medical History Acute low back pain Allergies Anger Bursitis Chronic back pain Chronic shoulder pain Cigarette smoker Depression Erectile dysfunction Explosive personality disorder Family history of aortic stenosis Family history of heart disease Hx of allergic reaction Migraine headache Neck pain Pilonidal cyst Seizure disorder Tobacco abuse Surgical History History of surgical removal of pilonidal cyst Social History Smoking/Tobacco Use Status: Current every day Tobacco Type: cigarettes Smoking risk assessment performed?: Yes Alcohol Intake: never Drug use: Never Substance use type: does not use Do you feel safe at home: Yes Do you feel safe in your relationship?: Yes Exam Const General: cooperative, comfortable and no acute distress Orientation: alert and oriented x3 HENMT Head: normal to inspection Eyes Pupils: PERRL Neck Other: right paraspinal tenderness, right sided, no meningismus no carotid bruit Resp Effort & Inspection: normal respiratory effort Auscultation: clear to auscultation bilaterally Cardio Rate: regular rate Rhythm: regular rhythm Skin General skin exam: no rashes or lesions noted Neuro General: patient alert and patient oriented x3 Gait: normal gait Motor: muscle tone normal throughout and strength 5/5 throughout Sensory Exam: no sensory deficits noted Extrem General: normal to inspection Course Vital Signs Vital signs: Vital Signs Temperature 36.9 C 08/11/22 17:06 Pulse 70 08/11/22 17:06 Respiratory Rate 18 08/11/22 17:06 Pulse Oximetry 97 08/11/22 17:06 Temperature 36.9 C 08/11/22 17:06 Temperature Source Oral 08/11/22 17:06 Pulse 70 08/11/22 17:06 Respiratory Rate 18 08/11/22 17:06 Respiratory Effort Normal, Non-Labored 08/11/22 17:07 Blood Pressure 134/87 08/11/22 17:08 Pulse Oximetry 97 08/11/22 17:06 Oxygen Delivery Method Room Air 08/11/22 17:06 Oxygen Flow Rate 0 08/11/22 17:06
== END 2022-08-11 17:39 | disposition home or self-care (01) ==
PROVIDERS: Emergency Provider Physician Assistant; PCP Family Medicine
DX: M54.2 Cervicalgia (principal); G40.909 Epilepsy, unspecified, not intractable, without status epilepticus
CPT/HCPCS: 99283; 99284

== ENCOUNTER 2024-07-05 08:28 | Emergency (ER) | payer MEDICAID, SELFPAY ==
[2024-07-05 08:39] VITALS: BP 127/80; PULSE 75; RESP 16; O2SAT 96
--- NOTE | 2024-07-05 08:57 | ED.GENADUL_ITS ---
Discharge Plan Disposition Patient Disposition: Home Discharge Details Clinical Impression: Left rib fracture Primary Care Provider: Suzy Anderson V ED Provider: Vivienne Bain Home Meds and New Rx's Prescriptions: New morphine 15 mg tablet 15 mg PO Q8H PRNQty: 5 0RF morphine 15 mg tablet 15 mg PO Q8H PRNQty: 7 0RF No Action epinephrine 0.3 mg/0.3 mL Auto-Injector 0.3 mg IM ONCE sumatriptan succinate [Imitrex] 50 MG tablet 50 mg PO PRN prochlorperazine maleate [Compazine] 10 mg tablet 10 mg PO Q6H PRNQty: 10 0RF Discharge Instructions Instructions: Rib fractures in adults Additional Instructions: You have sustained fractures to the eighth and ninth ribs on your left back side. Anesthesia performed a regional block to help with pain control. Follow up with Dr Anderson in the next week for reassessment I recommend that you use Tylenol 650 mg every 6 hours for pain control. You may also use muscle rubs containing Arnica. Heating pads may also provide comfort. For severe pain, you may use the morphine prescription provided; your primary care provider can continue working with you for pain control Practice deep breathing to prevent pneumonia. Return to care if you notice any signs of pneumonia such as fever/chills, difficulty breathing, worsening cough, new chest pain, or if you are very worried anything recheck to be Referrals: Suzy Anderson MD [Primary Care Provider] - Discharge Data Discharge Date/Time-TO BE ENTERED AT DEPARTURE: 07/05/24 12:34 HPI General Date/Time Provider Initiated Documentation: 07/05/24 08:44 . HPI Narrative: Chin is a 49year old male who presents to the emergency department today for evaluation of left posterior rib pain after fall. He reports that he slipped on ice while carrying a backpack full of cans, landed directly on hands/ground onto his left ribs. Denies head injury, extremity injury, other injury. He initially had difficulty breathing due to pain, says that he feels discomfort and crunching of his ribs when he takes a deep breath. Denies heada chance, neck pain, other back pain. Smoke cigarettes, denies alcohol use. Denies significant past medical history, sees Dr. Anderson for PCP Physical exam remarkable for tenderness with palpation of left posterior lower ribs. No overlying ecchymosis/skin tears, crepitus, or obvious deformity. Lung sounds clear bilaterally. No midline C-spine/T-spine/L-spine tenderness/deformity. Normal heart sounds. Abdomen soft, nondistended, nontender to palpation. No pain with palpation of bilateral upper extremities. D/dx includes but is not limited to: Rib fracture, contusion, pneumothorax, other soft tissue/musculoskeletal injury. No red flags concerning for head injury vertebral fracture/spinal cord injury based on reassuring history and physical exam. Rib x-rays performed, nondisplaced fractures of the eighth and ninth ribs noted. While in the emergency department, Chin received Tylenol and lidocaine patch for pain. Anesthesia did come down to perform nerve block that which is unsuccessful. Chin did remain in significant pain, a limited number of morphine tablets given for comfort. Reviewed discharge instructions with patient, including symptomatic management, importance of deep breathing, PCP follow-up recommendation, and red flags indicating need for return to emergency care Related Data Home Medications ?Medication ?Instructions ?Recorded ?Confirmed sumatriptan succinate 50 mg tablet 50 mg PO PRN 09/05/17 07/05/24 (Imitrex) epinephrine 0.3 mg/0.3 mL 0.3 mg IM ONCE 02/25/20 07/05/24 injection, auto-injector prochlorperazine maleate 10 mg 10 mg PO Q6H PRN #10 tabs 08/11/22 07/05/24 tablet (Compazine) morphine 15 mg immediate release 15 mg PO Q8H PRN #5 tabs 07/05/24 tablet morphine 15 mg immediate release 15 mg PO Q8H PRN #7 tabs 07/05/24 tablet Previous Rx's ?Medication ?Instructions ?Recorded prochlorperazine maleate 10 mg 10 mg PO Q6H PRN #10 tabs 08/11/22 tablet (Compazine) morphine 15 mg immediate release 15 mg PO Q8H PRN #5 tabs 07/05/24 tablet morphine 15 mg immediate release 15 mg PO Q8H PRN #7 tabs 07/05/24 tablet Allergies Allergy/AdvReac Type Severity Reaction Status Date / Time ibuprofen Allergy Severe Anaphylaxis Verified 07/05/24 08:46 indomethacin Allergy Severe Anaphylaxis Unverified 07/05/24 08:46 General Stated Complaint: Orthopedic LILLY: 4 Review of Systems Narrative: See HPI Exam Const General: cooperative, no acute distress and well developed Nutritional Appearance: average body habitus Orientation: alert and oriented x3 Neck Neck: normal visual inspection and full ROM Chest Chest: tenderness rib L posterior lower ribs involving the 10th rib, involving the 11th rib and involving the 12th rib Resp Effort & Inspection: normal respiratory effort and able to speak in complete sentences Auscultation: clear to auscultation bilaterally Cardio Rate: regular rate Rhythm: regular rhythm GI Inspection: normal to inspection Palpation: soft and nontender Back/Spine/Pelvis Cervical Spine: normal cervical lordosis and cervical ROM normal Thoracic/Lumbar Spine: thoracic and lumbar spine normal to inspection Skin General skin exam: no rashes or lesions noted Trauma: no lacerations or abrasions Course Vital Signs Vital signs: Vital Signs Pulse 75 07/05/24 08:39 Respiratory Rate 16 07/05/24 08:39 Blood Pressure 127/80 07/05/24 08:39 Pulse Oximetry 96 07/05/24 08:39 Pulse 75 07/05/24 08:39 Respiratory Rate 16 07/05/24 08:39 Blood Pressure 127/80 07/05/24 08:39 Blood Pressure Position Sitting 07/05/24 08:39 Pulse Oximetry 96 07/05/24 08:39 Oxygen Delivery Method Room Air 07/05/24 08:39 Oxygen Flow Rate 0 07/05/24 08:39 Pain Level 10 07/05/24 08:45 Medical Decision Making Imaging Data Radiologic Study: Radiologist's impression: Exam(s) XR RIBS LT W PA LAT CHEST CLINICAL HISTORY L posterior lower rib pain s/p fall, +SOB. COMPARISON: CR LEFT RIBS TO INCLUDE CXR from 01/21/2009 TECHNIQUE:: PA and lateral views of the chest and four views of the left ribs were performed. FINDINGS: LUNGS: Clear. No pleural abnormality seen. HEART: Normal. MEDIASTINUM: Normal. BONES: There are nondisplaced fractures of the lateral left 8th and 9th ribs. No compression fractures are seen in the thoracic spine. No bony destructive lesion is seen. OTHER FINDINGS: None. IMPRESSION: 1. Nondisplaced left 8th and 9th rib fractures.. 2. No acute pulmonary findings. Quality:[facility] Related Social Needs: No Data to Display PFSH All Active Problems (Updated 07/05/24 @ 10:40 by Vivienne Scherer) Left rib fracture (Acute) Left-sided face pain (Acute) Medical History Acute low back pain Allergies Anger Bursitis Chronic back pain Chronic shoulder pain Cigarette smoker Depression Erectile dysfunction Explosive personality disorder Family history of aortic stenosis Family history of heart disease Hx of allergic reaction Migraine headache Neck pain Pilonidal cyst Seizure disorder Tobacco abuse Surgical History History of surgical removal of pilonidal cyst Social History Smoking/Tobacco Use Status: Current every day Tobacco Type: cigarettes Smoking risk assessment performed?: Yes Alcohol Intake: never Drug use: Never Substance use type: does not use Do you feel safe at home: Yes Do you feel safe in your relationship?: Yes
[2024-07-05] MEDS: Acetaminophen 325 MG TAB 650 MG PO (09:08)
[2024-07-05] MEDS: Lidocaine 5% Patch 1 PATCH TP (09:08)
--- NOTE | 2024-07-05 10:02 | DI.RAD_ITS ---
Exam(s) XR RIBS LT W PA LAT CHEST CLINICAL HISTORY L posterior lower rib pain s/p fall, +SOB. COMPARISON: CR LEFT RIBS TO INCLUDE CXR from 01/21/2009 TECHNIQUE:: PA and lateral views of the chest and four views of the left ribs were performed. FINDINGS: LUNGS: Clear. No pleural abnormality seen. HEART: Normal. MEDIASTINUM: Normal. BONES: There are nondisplaced fractures of the lateral left 8th and 9th ribs. No compression fractur es are seen in the thoracic spine. No bony destructive lesion is seen. OTHER FINDINGS: None. IMPRESSION: 1. Nondisplaced left 8th and 9th rib fractures.. 2. No acute pulmonary findings.
--- NOTE | 2024-07-05 11:23 | ANES.NERVE_ITS ---
Nerve Block Single Injection Procedure Date and Time Date Performed: 07/05/24 Procedure Start: 11:15 Location Where Procedure Performed Procedure Location: Emergency Department Reason Performed: Acute Pain Management Pain Diagnosis: Rib Pain (left 8,9 rib fractures) Requesting Provider: Vivienne Scherer Timeout Performed Timeout Performed: Yes Monitoring Used Blood Pressure and SpO2 Sterility Sterility: Hand Hygiene, Surgical Cap, Surgical Mask, Sterile Gloves and Chlorh exidine Sedation Given During Procedure Sedation Given (Indicate Dose Given): No Sedation given Patient Mental Status Patient Mental Status: Awake Nerve Block 1st Nerve Block: Laterality: Left Block Type: Erector Spinae (Lower) Ultrasound Image Saved?: Yes Needle / Catheter Used: 100mm SonoPlex II Local Anesthetic Bolus (Indicate Dose Given): Lidocaine used for local infiltration of skin, Injected in 3-5ml increments after negative blood aspiration, Bupivacaine 0.25% Dose:: 20 ml and Exparel Dose:: 10 ml Additives (Indicate Dose Given): None Ultrasound: Sterile probe cover and gel used Nerve Stimulator: Not Used Paresthesia: Left (discomfort when passing through muscle layers) Paresthesia Duration: Transient Post Procedure Pain score (0-10): 10 Procedure Tolerated: No Complications and Patient did not tolerate well Procedure Outcome: Unsuccessful Procedure Comment: Kane Rain CRNA assisted and then took over procedure and completed injection. Rechecks still show no real change to pain level after 45 minutes to an hour. Denies SOB. ER Provider notified that he will need additional pain med for discharge. Performed By: Nicky Infante
[2024-07-05 12:09] VITALS: BP 117/86; PULSE 60; O2SAT 98
[2024-07-05] MEDS: MORPHine IR 15 MG TAB PO (12:13)
[2024-07-05] MEDS: Bupivacaine 0.25% Pres-Free 10 ML VIAL (12:33)
[2024-07-05] MEDS: Bupivacaine LIPOSOME/PF 133 MG/10 ML VIAL IJ (12:34)
--- NOTE | 2024-07-09 00:54 | NUR.NOTE ---
[facility] called and the PT gave verbal permission for records from the last emergency room visit.
== END 2024-07-05 12:34 | disposition home or self-care (01) ==
PROVIDERS: Emergency Provider Nurse Practitioner Family; PCP Family Medicine
DX: S22.32XA Fracture of one rib, left side, initial encounter for closed fracture (principal); W19.XXXA Unspecified fall, initial encounter
CPT/HCPCS: 64450; 76942; 99283; 71046; 71100; J0665; J0666

== ENCOUNTER 2025-01-11 18:06 | Emergency (ER) | payer MEDICAID, SELFPAY ==
[2025-01-11 18:08] VITALS: BP 115/73; PULSE 86; RESP 16; TEMP 36.6; O2SAT 93
--- NOTE | 2025-01-11 18:39 | DI.RAD_ITS ---
Exam(s) XR KNEE RT 3V AP,LAT,JOSH EXAM: XR KNEE RT 3V AP,LAT,JOSH CLINICAL HISTORY: R knee swelling. TECHNIQUE: 2D digital imaging was performed of the right knee. Three views obtained. AP, lateral and PA tunnel views were obtained. COMPARISON: No exams were available for comparison FINDINGS: BONES: No acute fracture is present. No bony destructive lesion is seen. JOINTS: The knee is normally aligned. There is a joint effusion. SOFT TISSUE: Normal. IMPRESSION: Small joint effusion. Otherwise unremarkable examination. DATA REPOSITORY: RADIATION DOSE DELIVERED:
--- NOTE | 2025-01-11 19:44 | W.ED.GENAD ---
Discharge Plan Disposition Patient Disposition: Home Condition: Stable Discharge Details Clinical Impression: Effusion of right knee Primary Care Provider: Suzy Anderson V ED Provider: Brian South Home Meds and New Rx's Prescriptions: Continued epinephrine 0.3 mg/0.3 mL Auto-Injector 0.3 mg IM ONCE sumatriptan succinate [Imitrex] 50 MG tablet 50 mg PO PRN prochlorperazine maleate [Compazine] 10 mg tablet 10 mg PO Q6H PRNQty: 10 0RF Discharge Instructions Instructions: Knee Pain ED Additional Instructions: You were seen in the emergency department for your right knee effusion of unknown cause, your x-ray shows no acute fracture, I am providing you with a hinged knee brace, I recommend you follow-up with orthopedic evaluation, in the meantime please rest, ice, compress and elevate the knee often, please use therapeutic dosing of Tylenol (acetamenophen) & Advil (ibuprofen) in an alternating fashion as follows: Take 1000mg of Tylenol every 6 hours without missing doses- that is 4 times per day. Senior [facility] in between the Tylenol dosings, take 400-600mg of Advil also on a 6 hour schedule, that is also 4 times per day. The daily maximum dosing of Tylenol is 4000mg, and the daily maximum dosing of Advil is 2400mg. This is safe to do for weeks. Please note that some common cold medications & prescription pain medications may contain acetamenophen and you need to read OTC drug labels and factor that in to maximum daily dosings. Return for severe increase in size of knee especially with redness and warmth to touch, pain with passive range of motion. Referrals: [facility] [Provider Group] Suzy Anderson MD [Primary Care Provider, Medicine] Discharge Data Discharge Date/Time-TO BE ENTERED AT DEPARTURE: 01/11/25 20:08 HPI General Date/Time Provider Initiated Documentation: 01/11/25 18:24. HPI Narrative: 49 year-old male presents to ED today by POV/ambulating with a chief complaint of R knee swelling upon awakening yesterday. Quality described as pain and swelling, no radiation to redness, inability to ambulate, endorses pain with extension, denies known tick bites. Severity is described as moderate. Palliating factors include nothing specific. Provoking factors include nothing specific. Patient not anticoagulated. Related Data Home Medications ?Medication ?Instructions ?Recorded ?Confirmed sumatriptan succinate 50 mg tablet 50 mg PO PRN 09/05/17 01/11/25 (Imitrex) epinephrine 0.3 mg/0.3 mL 0.3 mg IM ONCE 02/25/20 01/11/25 injection, auto-injector prochlorperazine maleate 10 mg 10 mg PO Q6H PRN #10 tabs 08/11/22 01/11/25 tablet (Compazine) Previous Rx's ?Medication ?Instructions ?Recorded prochlorperazine maleate 10 mg 10 mg PO Q6H PRN #10 tabs 08/11/22 tablet (Compazine) Allergies Allergy/AdvReac Type Severity Reaction Status Date / Time ibuprofen Allergy Severe Anaphylaxis Verified 01/11/25 18:09 indomethacin Allergy Severe Anaphylaxis Unverified 01/11/25 18:09 General Stated Complaint: Orthopedic LILLY: 4 Review of Systems All systems reviewed & are unremarkable except as noted in HPI and below Exam Narrative Exam Narrative: GENERAL APPEARANCE: Well-nourished, non-toxic, awake and alert, atraumatic, no acute distress. SKIN: Warm, pink, dry, intact, without rashes/lesions/ulcerations. HEAD: Normocephalic, atraumatic, normal hair distribution for gender/age. EYES: Normal conjunctiva, no exudates on lids/lashes. ENT: Nares patent, no circumoral cyanosis, no facial swelling NECK: Supple, trachea midline, painless cervical ROM. LUNGS/CHEST: Non-labored respirations, normal A/P diameter, symmetrical expansion, no chest wall deformity HEART (CV/PV): No peripheral edema, no JVD. ABDOMEN: Soft, non-distended, no guarding. MSK: Normal ROM, no swelling/deformity to bilateral UEs or LEs, moving all extremities without weakness, no cyanosis, spine midline without tenderness, normal curvature, mild R knee effusion, no ligamentous laxity with anterior drawer, no ligamentous laxity with varus/valgus forces, Michelle negative, no warmth or erythema to touch NEURO: Mental Status AAOx4 - alert to person, place, time, events No facial droop, no forehead involvement. Motor: No focal weakness - strength 5/5 in bilateral UEs and LEs, proximal and distal, symmetric. Sensory: sensation intact to light touch globally. Gait normal: patient ambulated without ataxia into ED room. PSYCH: euthymic, cooperative, pleasant, appropriate speech Course Vital Signs Vital signs: Vital Signs Temperature 36.6 C 01/11/25 18:08 Pulse 86 01/11/25 18:08 Respiratory Rate 16 01/11/25 18:08 Blood Pressure 115/73 01/11/25 18:08 Pulse Oximetry 93 01/11/25 18:08 Temperature 36.6 C 01/11/25 18:08 Temperature Source Oral 01/11/25 18:08 Pulse 86 01/11/25 18:08 Respiratory Rate 16 01/11/25 18:08 Respiratory Effort Normal, Non-Labored 01/11/25 19:11 Respiratory Depth Normal 01/11/25 19:11 Respiratory Pattern Normal 01/11/25 19:11 Blood Pressure 115/73 01/11/25 18:08 Blood Pressure Position Sitting 01/11/25 18:08 Pulse Oximetry 93 01/11/25 18:08 Oxygen Delivery Method Room Air 01/11/25 18:08 Oxygen Flow Rate 0 01/11/25 18:08 Pain Level 3 01/11/25 18:08 Medical Decision Making This dictation utilizes [id number] dictation software and may contain unedited grammatical errors. 49 year-old male presents to ED today by POV/ambulating with a chief complaint of R knee swelling upon awakening yesterday. Quality described as pain and swelling, no radiation to redness, inability to ambulate, endorses pain with extension, denies known tick bites. Severity is described as moderate. Palliating factors include nothing specific. Provoking factors include nothing specific. Patients' medical history: Noncontributory. Family and social history: Noncontributory. Pertinent exam findings / vital signs include mild swelling to right knee without erythema, no warmth to touch, no pain with passive range of motion, no ligamentous laxity with varus/valgus/anterior drawer forces, Michelle negative. Differential / pathologies of concern include exacerbation of old knee injury, arthritis, less likely tick bite or other inflammatory arthropathy. Diagnostic studies of: - X-ray right knee-no acute fracture seen there is a small effusion. Interventions of: - Recommend RICE therapy and therapeutic dosing of Tylenol and ibuprofen, follow-up with orthopedics for any complications. ED Course/Assessment/Plan: 49-year-old male presents with atraumatic right knee pain, has plenty of old injuries and is 49 years, possibly exacerbated an old injury like a meniscus tear there is no overt signs of internal derangement on exam, no signs of septic arthritis, recommend RICE therapy and knee bracing follow-up with orthopedics. Findings not consistent with septic arthritis, inability to weight-bear, fracture or trauma. Disposition of effusion of right knee. Patient verbalized understanding of the plan and return to ED criteria and engaged in shared decision making. Medical Records Medical records reviewed: Yes I reviewed the patient's medical records. Imaging Data Radiologic Study: Attestation: I personally reviewed and interpreted this imaging study as follows: Imaging: X-Ray Radiologist's impression: EXAM: XR KNEE RT 3V AP,LAT,JOSH CLINICAL HISTORY: R knee swelling. TECHNIQUE: 2D digital imaging was performed of the right knee. Three views obtained. AP, lateral and PA tunnel views were obtained. COMPARISON: No exams were available for comparison FINDINGS: BONES: No acute fracture is present. No bony destructive lesion is seen. JOINTS: The knee is normally aligned. There is a joint effusion. SOFT TISSUE: Normal. IMPRESSION: Small joint effusion. Otherwise unremarkable examination. PFSH All Active Problems (Updated 01/11/25 @ 19:45 by BOZENA Carballo) Effusion of right knee (Acute) Left-sided face pain (Acute) Medical History Acute low back pain Allergies Anger Bursitis Chronic back pain Chronic shoulder pain Cigarette smoker Depression Erectile dysfunction Explosive personality disorder Family history of aortic stenosis Family history of heart disease Hx of allergic reaction Migraine headache Neck pain Pilonidal cyst Seizure disorder Tobacco abuse Surgical History History of surgical removal of pilonidal cyst Social History Smoking/Tobacco Use Status: Current every day Tobacco Type: cigarettes Smoking risk assessment performed?: Yes Alcohol Intake: never Drug use: Never Substance use type: does not use Do you feel safe at home: Yes Do you feel safe in your relationship?: Yes
[2025-01-11 20:01] VITALS: BP 112/89; PULSE 71; RESP 16; TEMP 36.8; O2SAT 95
== END 2025-01-11 20:08 | disposition home or self-care (01) ==
PROVIDERS: Emergency Provider Physician Assistant; PCP Family Medicine
DX: M25.461 Effusion, right knee (principal); M25.561 Pain in right knee
CPT/HCPCS: 99283; 99284; 73562